=== PATIENT | female | born 1955 | race Caucasian/White ===

== ENCOUNTER 2024-05-28 15:45 | Inpatient (IN) | payer MEDICARE, OTHER, SELFPAY ==
[2024-05-28] VITALS (9 sets, daily range): BP systolic 103–123; BP diastolic 63–81
[2024-05-28 11:56] LABS: Glucose - Point of Care 89 mg/dl (70-99)
[2024-05-28 12:53] LABS: % Basophils 0.4 % (0-2); % Eosinophils 0.3 % (0-6); % Immature Granulocytes 0.1 % (0-0.5); % Lymphocytes 28.6 % (20.5-51.1); % Monocytes 6.1 % (1.7-9.3); % Neutrophils 64.5 % (42.2-75.2); Absolute Lymphocytes 2.8 10^3/uL (1.2-3.4); Absolute Monocytes 0.6 10^3/uL (0.1-0.6); Absolute Neutrophils 6.2 10^3/uL (1.4-6.5); Hematocrit 48.2 % (37.0-47.0); Hemoglobin 15.2 g/dL (12.0-16.0); Mean Corp Hgb Conc. 31.5 g/dL (33.0-37.0); Mean Corpuscular Hgb 30.5 pg (27.0-31.0); Mean Corpuscular Volume 96.8 fL (81.0-99.0); Mean Platelet Volume 11.2 fL (7.4-10.4); Nucleated Red Blood Cells % 0 %; Platelet Count 216 10^3/uL (130-400); Red Blood Cell Count 4.98 10^6/uL (4.20-5.40); Red Cell Dist. Width 13.4 % (11.5-14.5); White Blood Cell Count 9.6 10^3/uL (4.8-10.8)
[2024-05-28 13:05] LABS: ALT (SGPT) 52 U/L (0-35); AST (SGOT) 55 U/L (14-36); Albumin 4.3 g/dl (3.5-5.0); Alkaline Phosphatase 66 U/L (38-126); Blood Urea Nitrogen 35 mg/dl (7-17); Calcium 9.2 mg/dl (8.4-10.2); Carbon Dioxide 29 mmol/L (22-30); Chloride 111 mmol/L (98-107); Glucose 78 mg/dl (70-99); Potassium 4.4 mmol/L (3.5-5.1); Sodium 154 mmol/L (135-145); Total Bilirubin 0.9 mg/dl (0.2-1.3); Total Protein 7.7 g/dl (6.3-8.2); eGFR > 60.00
[2024-05-28 13:11] LABS: Urine Albumin Trace (Neg - Trace); Urine Bilirubin Negative (Negative); Urine Character Clear (Clear); Urine Color Yellow; Urine Glucose Negative (Negative); Urine Ketone Negative (Negative); Urine Leukocyte Negative (Negative); Urine Nitrite Negative (Negative); Urine Occult Blood Negative (Negative); Urine Specific Gravity 1.025 (<1.030); Urine Urobilinogen Negative (Neg - 1+)
--- NOTE | 2024-05-28 14:17 | ED.GENMED ---
History of Present Illness
General
Chief Complaint: Change in Mental Status
Source: records, ambulance crew and long-term
Exam Limitations: dementia
Time Seen by Provider: 05/28/24 13:15
Nursing documentation reviewed up to this point in time: agreed with
History of Present Illness
History of Present Illness:
68-year-old female with a past medical history of hypertension, hyperlipidemia, severe dementia who presents to the emergency department from [facility] for evaluation of lethargy/change in mentation. Patient is nonverbal and
bedbound at baseline. She is unable to participate in history. I spoke to the long-term staff to obtain collateral history: Apparently patient is nonverbal and bedbound but is typically active provide some nonverbal physical feedback when asked
questions. Today they said that she was not acting herself was essentially not responding well to even painful stimuli and so she was sent to the ER for evaluation. They have not noted any recent fever, cough, diarrhea, vomiting or any other
issues. Apparently they did test her for COVID that was negative. No recent medication adjustments.
Review of Systems
Review of Systems
Unable to obtain full review of systems at this time due to: dementia
All Other Systems: Not applicable
Phy Exam
Physical Exam
Physical Exam:
General: Laying in bed eyes open but not tracking with her eyes, not following commands or attempting to respond to questioning; appears cachectic and chronically ill
Head: Normocephalic, atraumatic
Eyes: Conjunctiva normal, pupils 4 mm and reactive to light bilaterally
Throat: Airway intact, somewhat dry mucous membrane
Neck: Trachea midline
Lungs: Clear to auscultation bilaterally, no wheezing, rales, rhonchi
Heart: Regular rate and rhythm, no murmurs, gallops, or rubs
Abd: Soft, non distended, no masses
Neuro: Nonverbal
Extremities: No edema in extremities, warm and well-perfused
Scores
Heart Failure Risk
Heart Failure Risk Score: Not Applicable
Heart Score for Chest Pain Patients
STEMI patient?: Not applicable
Withdrawal Assessment of Alcohol
Withdrawal Assessment Completed?: Not applicable
Course
Orders/Labs/Results
Orders:
Orders
05/28/24 Lunch
NPO
Allow oral meds: Yes
Allow clear liquids: Sips of Clears
05/28/24 12:28
CMP [Comprehensive Metabolic Panel] Urgent
Complete Blood Count/With Diff Urgent
TSH Reflex To Free T4 Urgent
Comment: TSH REFLEX ADDED ON BY FLOOR 2:50PM 05-28-24
Urinalysis Reflex To Culture Urgent
Date Specimen was Collected: 05/28/24
Time Specimen was Collected: 12:25
05/28/24 13:30
CR Chest Portable - 1 View Urgent
Comment:
Reason For Exam: confused
Reason Study Needs to be Portable: Unable to Transport
05/28/24 14:31
CT Head W/o Iv Contrast Urgent
Comment:
Reason For Exam: change in MS/lethergy
05/28/24 14:37
Lactated Ringers [Lr] 1,000 ml IV BOLUS
05/28/24 14:51
Add On- LAB Urgent
Tests Added?: TSH with reflex to Free T4
05/28/24 15:00
Dextrose 5%/Water 1000 ml [D5w] 1,000 ml IV 75 mls/hr
Dextrose 5%/Water 1000 ml [D5w] 1,000 ml IV 75 mls/hr
05/28/24 15:11
Admit/Transfer Patient As Directed
Co-Sign Provider:
Level of Care: Inpatient admission
Assign to:: Telemetry
Physician / Group: charo
Diagnosis: dehydration
Reason for Telemetry: Arrhythmia
Date to Stop Telemetry: 05/31/24
Time to Stop Telemetry: 11:00
Reason for Hospitalization: dehydration
Expected length of stay greater than two midnights?: Yes
ELOS- Estimated Length of Stay in days: 3
I certify the patient meets the requirements for IP care: Yes
PRN Pain Medication Management As Directed
May give lesser potent ordered pain med per pt: Yes
preference::
Protocol:: Medication orders for pain may be administered in a
manner that supports deferring to patient preference
when the pt is:
- Requesting an ordered lesser potent pain medication.
Least to most potent pain medications are defined
as: acetaminophen < NSAID < tramadol < opioids
(morphine, oxycodone, hydromorphone).
- Requesting a lesser dose of the same medication IF
ORDERED.
- Requesting a less intrusive route of administration
if both routes are prescribed by the provider (PO <
IV).
05/28/24 15:13
Code Status As Directed
Resuscitation Status: Full Code
05/28/24 15:15
COVID-19 Antigen Urgent
Source: Nasal Swab
Influenza A+B Rapid Molecular Urgent
RUTHANN Source: Nasal Swab
Specimen Description:
05/28/24 15:32
PRN Pain Medication Management As Directed
May give lesser potent ordered pain med per pt: Yes
preference::
Protocol:: Medication orders for pain may be administered in a
manner that supports deferring to patient preference
when the pt is:
- Requesting an ordered lesser potent pain medication.
Least to most potent pain medications are defined
as: acetaminophen < NSAID < tramadol < opioids
(morphine, oxycodone, hydromorphone).
- Requesting a lesser dose of the same medication IF
ORDERED.
- Requesting a less intrusive route of administration
if both routes are prescribed by the provider (PO <
IV).
05/28/24 16:40
Bisacodyl [Dulcolax] 10 mg RECTAL [id number] PRN
Docusate W/Senna [Senokot-S] 1 tablet PO BIDPRN PRN
Polyethylene Glycol Powder [Miralax] 17 grams PO DAILYPRN PRN
05/28/24 16:40
Activity As Directed
Activity Level: As Tolerated
Vital Signs As Directed
Frequency: Per unit guidelines
Speech Therapy Eval & Treat Routine
DX Deep Vein Thrombosis Video Routine
05/28/24 18:00
TSH Reflex To Free T4 Urgent
Enoxaparin Sodium [Lovenox] 40 mg SC QPM
05/28/24 19:27
BMP [Basic Metabolic Panel] Stat
05/29/24 06:00
Basic Metabolic Panel IN AM
05/30/24 06:00
Basic Metabolic Panel IN AM
05/31/24 06:00
Basic Metabolic Panel IN AM
05/31/24 11:00
DC Protocol for Telemetry ONCE
06/01/24 06:00
Basic Metabolic Panel IN AM
Abnormal Lab Results
05/28/24
12:28
Hct 48.2 H %
(37.0-47.0)
MCHC 31.5 L g/dL
(33.0-37.0)
MPV 11.2 H fL
(7.4-10.4)
Sodium 154 H mmol/L
(135-145)
Chloride 111 H mmol/L
(98-107)
BUN 35 H mg/dl
(7-17)
AST 55 H U/L
(14-36)
ALT 52 H U/L
(0-35)
05/28/24 12:28
05/28/24 12:28
Vital Signs
Initial and Last Documented VS:
Initial Vital Signs
BP
103/72
05/28/24 11:54
Last Documented Vital Signs
Temp Pulse Resp BP Pulse Ox
36.3 C 72 18 114/63 93
05/28/24 19:32 05/28/24 19:32 05/28/24 19:32 05/28/24 19:32 05/28/24 19:32
MDM/Problems Addressed
Differential Diagnosis Includes:
Differential diagnosis for lethargy is wide and includes but not limited to: Dehydration/electrolyte derangement/renal failure, infection including UTI or pneumonia or viral syndrome, hypoglycemia/poor p.o. intake, brain bleed or stroke,
polypharmacy, worsening dementia
MDM/Problems Addressed:
68-year-old female presents to the emergency room for evaluation of increased lethargy/change in mental status that staff says they noted over the past 24 hours. Difficult assessment here as she is baseline nonverbal but apparently she normally
provide some physical feedback/interaction despite being nonverbal and has been very lethargic/minimally responsive today. Vitals and exam as above. She had borderline fever here at 37.8 �C. Will plan to place an IV check labs including a CBC and
a CMP. Will check urinalysis and chest x-ray. Will check CT head. Swab for COVID and flu. Monitor closely reassess after the above.
Initial labs reviewed: CBC unremarkable, CMP shows moderate hyponatremia with a sodium of 154. Creatinine 0.6 his baseline but BUN doubled to 35. Suggests dehydration. Will bolus with 1000 cc of lactated Ringer's. Her urinalysis is negative for
infection, chest x-ray showed no pneumonia. CT head pending. Plan to admit for increased lethargy suspect related to dehydration.
CT head reviewed by me no acute pathology. Case discussed with hospitalist for admission.
Chronic conditions affecting care:
Dementia
*Critical Care Note
Total Time (30-74mins, 75-104mins- exclusive of procedures): Not Applicable
Patient Management
Social determinants of health affecting care: Living situation
Discussion with other providers: Hospitalist (Discussed with hospitalist)
Escalation/DeEscalation of care consider admission/obs:
Admission indicated
ED Attending Note
-
Portions of this chart may have been created with voice recognition software.� Occasional wrong word or��sound alike� substitutions may have occurred due to the inherent limitations of voice recognition software.
Discharge Plan
Departure
Patient Disposition: Admit
Date of Disposition: 05/28/24
Time of Disposition: 14:57
Admit to doctor: Wendy
Presentation/result/management discussed w/ accepting MD/DO: Hospitalist
Discharge Problem:
Acute dehydration, Acute hypernatremia
Interventions
Interventions:
*Risk Screen - Suicide Last Done: 05/28/24 12:04
*General Assessment Last Done: 05/28/24 12:04
*Neglect/Abuse Screening Last Done: 05/28/24 12:04
ED- Fall Risk Assessment Last Done: 05/28/24 12:22
*ED COVID-19 Vaccine History Last Done: 05/28/24 12:04
*Nursing Disposition Last Done: 05/28/24 16:35
ED- Pulmonary Assessment Last Done: 05/28/24 12:22
ED- Neurological Assessment Last Done: 05/28/24 12:22
ED- Cardiac Assessment Last Done: 05/28/24 12:22
ED Swallowing Screen Last Done: 05/28/24 12:22
Discharge Date and Time
Discharge Date/Time: 05/28/24 16:36
[2024-05-28] MEDS: LR 1000 IV (14:58)
[2024-05-28 15:00] LABS: Glucose - Point of Care 84 mg/dl (70-99)
--- NOTE | 2024-05-28 15:06 | HPS.HSE ---
Addendum entered and electronically signed by Vladimir Elena MD 05/28/24 15:46:
I saw and examined the patient.
The CRYPTOLOGIC TECHNICIAN OPERATOR/ANALYST's note was reviewed and I agree with the note.
Comment:
68-year-old female with past medical history of severe dementia, hypertension, hyperlipidemia hypothyroidism who is presenting from [facility] with lethargy/change in mental status. Patient is nonverbal and bedbound at baseline. Patient in the
ER was found to have a sodium of 154. Patient was checked for COVID and was found to be negative. CT head without acute no pulm artery. Patient received IV fluid and was admitted to hospitalist.
General: cachetic, appears chronically ill. eyes open but not following commands
HEENT: NormoCephalic, Moist mucous membranes and Atraumatic
Respiratory: Clear
Cardiac: S1/S2 and Regular Rhythm; No Murmur or Rub
GI: Soft, Non Tender, Non Distended and Normal Bowel Sounds; No Organomegaly
Rectal: Deferred by Provider
Musculoskeletal: No Clubbing, No Cyanosis and No Edema
Skin: No Rash
Neuro: Eyes open. Calm. Not following any commands.
Psych: Calm
# Toxic metabolic encephalopathy secondary to hypernatremia versus worsening of dementia
# Severe dehydration
-Patient received bolus and D 5w in ER
-UA, chest x-ray and CT head negative
-continue hypotonic IV fluid
-BMP at 1800
# Chronic LFT elevation
AST 55, ALT 52
-Continue to trend LFTs
Essential Hypertension--Hold losartan
Hyperlipidemia--Hold atorvastatin
Hypothyroidism--Resume levothyroxine until able to take PO
Anxiety/Depression--Hold meds until mentation improves
Chronic Constipation--Monitor bowel movements
Underweight suspected chronic protein caloric malnutrition moderate versus severe
DVT proph: Lovenox
Code Status: Full Code
Updated son over the phone in detail.
I spent a total of 78 minutes with the patient or on the floor. More than 50% of this time involved counseling and coordination of care.
Original Note:
Family Physician
-
Family Physician: Stefano Mackay
Chief Complaint
-
lethargy
History of Present Illness
68-year-old female with a past medical history of hypertension, hyperlipidemia, severe dementia who presents to the emergency department from [facility] for evaluation of lethargy/change in mentation. Patient is nonverbal and
bedbound at baseline. he is unable to provide any history. history obtained from ER physician and note. patient was not acting her self and not responding to painful stimuli. They have not noted any recent fever, cough, diarrhea, vomiting
Apparently they did test her for COVID that was negative. No recent medication adjustments.
Upon arrival noted hypernatremia. received LR and D5W in ER. admitting for further management.
Medical History
Past Medical History
Past Medical History: Reports Other
Additional Past Medical History:
Essential Hypertension
Hyperlipidemia
Hypothyroidism
Anxiety/Depression
Overactive Bladder
Chronic Constipation
Past Surgical History: Reports None
Social History
Unable to obtain full social history at this time due to: Acuity
Family History
Family History: Not pertinent
Allergies / Home Medications
Allergies reflects when Allergies were last updated in [employer].
Home Medications with original date entered in [employer]
Allergy/Medication List:
Allergies
Allergy/AdvReac Type Severity Reaction Status Date / Time
olanzapine [From Zyprexa] Allergy Unknown Verified 05/28/24 12:07
sertraline [From Zoloft] Allergy Unknown Verified 05/28/24 12:07
Home Medications
acetaminophen 325 mg tablet 650 mg PO Q4HPRN PRN mild pain/fever>100 02/10/23
atorvastatin 40 mg tablet 40 mg PO DAILY High Cholesterol 02/10/23
bupropion HCl 150 mg tablet,12 hr sustained-release 150 mg PO DAILY Depression 02/10/23
clonazepam 0.5 mg tablet 0.5 mg PO HS Mental Health/Anxiety 02/10/23
docusate sodium 100 mg capsule (Colace) 100 mg PO BID Constipation 02/10/23
levothyroxine 112 mcg tablet 112 mcg PO DAILY Thyroid 02/10/23
losartan 25 mg tablet 25 mg PO DAILY Blood Pressure 02/10/23
paroxetine HCl 10 mg tablet 30 mg PO HS Depression 02/10/23
polyethylene glycol 3350 17 gram oral powder packet (Miralax) 17 g PO DAILY Constipation 02/10/23
sennosides 8.6 mg tablet (senna) 17.2 mg PO BID Constipation 02/10/23
famotidine 20 mg tablet (Pepcid) 20 mg PO DAILY 05/28/24
mirtazapine 7.5 mg tablet 7.5 mg PO DAILY 05/28/24
sodium chloride 0.65 % nasal spray aerosol 2 spray intranasal Q2HPRN PRN congestion 05/28/24
Review of Systems
-
Unable to obtain full review of systems at this time due to: Acuity
Physical Exam
Vital Signs
Vital Signs
Temp Pulse Resp BP Pulse Ox
100.0 F 86 14 109/73 96
05/28/24 12:04 05/28/24 13:15 05/28/24 13:15 05/28/24 13:00 05/28/24 13:15
Physical Exam
General: Well Developed, Well Nourished and No Apparent Distress
HEENT: NormoCephalic, Moist mucous membranes and Atraumatic
Respiratory: Clear
Cardiac: S1/S2 and Regular Rhythm; No Murmur or Rub
GI: Soft, Non Tender, Non Distended and Normal Bowel Sounds; No Organomegaly
Rectal: Deferred by Provider
Musculoskeletal: No Clubbing, No Cyanosis and No Edema
Skin: No Rash
Neuro: Nonfocal/grossly intact
Psych: Calm
Laboratory Results
-
05/28/24 12:
05/28/24 12:
Laboratory Results
Total Bilirubin 0.9 mg/dl (0.2-1.3) 05/28/24 12:
AST 55 U/L (14-36) H 05/28/24 12:28
ALT 52 U/L (0-35) H 05/28/24 12:
Alkaline Phosphatase 66 U/L (38-126) 05/28/24 12:
Data Reviewed
-
Diagnostic Radiology: Report Reviewed by me
CT Scan: Report Reviewed by me
Lab Data: Labs Reviewed by me
Impression/Plan
-
# Lethargy suspect secondary to dehydration
# Hyponatremia
-Patient received bolus and D 5w in ER
-UA, chest x-ray and CT head negative
-continue D%W
-BMP at 1800
# Chronic LFT elevation
AST 55, ALT 52
-Continue to trend LFTs
Essential Hypertension--Hold losartan
Hyperlipidemia--Hold atorvastatin
Hypothyroidism--Resume levothyroxine until able to take PO
Anxiety/Depression--Hold meds until mentation improves
Chronic Constipation--Monitor bowel movements
DVT proph: Lovenox
Code Status: Full Code
speech consult
[2024-05-28 15:39] LABS: COVID-19 Antigen Negative (Negative)
[2024-05-28 16:29] LABS: TSH Reflex To Free T4 3.43 uIU/ml (0.47-4.68)
[2024-05-28] MEDS: D5W 1000 IV (16:31)
[2024-05-28] MEDS: LOVENOX 40 MG SC (17:03)
[2024-05-28 20:57] LABS: Blood Urea Nitrogen 31 mg/dl (7-17); Calcium 8.9 mg/dl (8.4-10.2); Carbon Dioxide 30 mmol/L (22-30); Chloride 111 mmol/L (98-107); Estimated Creatinine Clearance 58 ml/min; Glucose 99 mg/dl (70-99); Sodium 148 mmol/L (135-145); eGFR > 60.00
[2024-05-28 21:24] LABS: TSH Reflex To Free T4 3.07 uIU/ml (0.47-4.68)
--- NOTE | 2024-05-29 02:05 | PTCARENOTE ---
Received patient in bed upon change of shift. Non verbal and droswey as reported. Patient repositioned in bed. No signs of distress noted. Call rodriguez within reach.
[2024-05-29 04:03] VITALS: BP 109/62
[2024-05-29] MEDS: D5W 1000 IV (05:55)
[2024-05-29 06:00] VITALS: BMI 16.5
[2024-05-29 06:23] VITALS: BP 113/70
[2024-05-29 08:51] LABS: Blood Urea Nitrogen 28 mg/dl (7-17); Calcium 8.7 mg/dl (8.4-10.2); Carbon Dioxide 29 mmol/L (22-30); Chloride 108 mmol/L (98-107); Estimated Creatinine Clearance 62 ml/min; Glucose 95 mg/dl (70-99); Potassium 3.7 mmol/L (3.5-5.1); Sodium 145 mmol/L (135-145); eGFR > 60.00
[2024-05-29 10:19] VITALS: BMI 16.5
--- NOTE | 2024-05-29 11:01 | PTOTSP ---
ST Acute Care Evaluation
Pt currently presents with clinical signs of mild to moderate oropharyngeal dysphagia characterized by reduced and impaired oral acceptance with reduced oral cavity opening and anterior spillage, prolonged oral manipulation and propulsion
posteriorly, as well as coughing with sequential sips of thin liquids. Pt is at an increased risk for aspiration given her dependency on others for feeding, significant cognitive deficits, and reduced attention to task.
Recommendations:
- Initiate a PO diet of PUREED SOLIDS with REGULAR THIN LIQUIDS (single sips only), and meds crushed in puree.
- Aspiration & GERD precautions precautions: 1:1 assist for all PO intake; HOB fully upright for all PO intake and for 60 minutes after PO intake; small bites; single sips only; alternate bites/sips; feed slowly; check for oral clearance.
- WILLOW ANALYST to f/u re: diet tolerance, to trial diet upgrades, and to determine if pt would benefit from an instrumental swallow study.
[2024-05-29 11:16] VITALS: BP 110/68
--- NOTE | 2024-05-29 11:51 | W.PN.HOSP.TC ---
Addendum entered and electronically signed by Vladimir Elena MD 05/29/24 13:17:
Updated son over the phone in details
Original Note:
Today's Communication/Plan
-
restart home meds
hold statin
diet restarted
DC IVF
TREND CMP
Hold losartan-bp controlled
Assessment / Plan
Assessment / Plan
General: cachetic, appears chronically ill. eyes open but not following commands
HEENT: NormoCephalic, Moist mucous membranes and Atraumatic
Respiratory: Clear
Cardiac: S1/S2 and Regular Rhythm; No Murmur or Rub
GI: Soft, Non Tender, Non Distended and Normal Bowel Sounds; No Organomegaly
Rectal: Deferred by Provider
Musculoskeletal: No Clubbing, No Cyanosis and No Edema
Skin: No Rash
Neuro: Eyes open. Calm. Not following any commands.
Psych: Calm
# Toxic metabolic encephalopathy secondary to acute on chronic hypernatremia versus worsening of dementia
# Severe dehydration
-Patient received bolus and D 5w in ER
-UA, chest x-ray and CT head negative
-stop further IVF. Na downtrended and improved to 145.
- Trend bmp
-seen by speech and started on puree diet with thin liquids. Meds crushed in puree.
# Chronic LFT elevation
AST 55, ALT 52
-Continue to trend LFTs
Essential Hypertension--Hold losartan as BP 110/68 OFF MEDS.
Hyperlipidemia--cont atorvastatin
Hypothyroidism--Resume levothyroxine
Anxiety/Depression--Restart home regimen
Chronic Constipation--Monitor bowel movements-restarted miralax/colace/senna
Underweight suspected chronic protein caloric malnutrition moderate versus severe
DVT proph: Lovenox
Code Status: Full Code
Updated son over the phone in detail on 05/28/24
Called son on 05/29/24 no response. left Voicemail for call back.
Anticipated Discharge: Within 24 hours
Subjective/Interval History
-
Date of Service: May 29, 2024
Awake but does not follow any commands
Objective Data
-
Labs:
Laboratory Results
05/29/24
07:49
Sodium 145
Potassium 3.7
Chloride 108 H
Carbon Dioxide 29
BUN 28 H
Creatinine 0.6
Glucose 95
Calcium 8.7
Vital Signs:
Vital Signs
Temp Pulse Resp BP Pulse Ox
97.8 F 64 20 110/68 97
05/29/24 11:16 05/29/24 11:16 05/29/24 11:16 05/29/24 11:16 05/29/24 11:16
Data Reviewed
-
Total Time Spent with Patient (in minutes): 55
--- NOTE | 2024-05-29 12:24 | CM ---
Pt currently w/ dementia and is nonverbal. Pt is from [facility] term [facility].
Pt is currently bedbound. Per Samantha/Lisa Conley, pt is total care and does not use any DME
No SNF/VN/PT hx
PCP: Dr. Stefano Mackay
Pharmacy: [facility]
Per hospitalist note, anticipated d/c within 24 hours
Pt will need ambulance transport at d/c
[facility]
Report: [phone]

Plan: Return to LTC facility via ambulance
[2024-05-29 15:08] VITALS: BP 102/61
[2024-05-29] MEDS: LOVENOX 40 MG SC (17:42)
[2024-05-29] MEDS: SYNTHROID PO (18:46)
[2024-05-29 21:06] VITALS: BP 92/61
[2024-05-29] MEDS: COLACE PO (21:16)
[2024-05-29] MEDS: PAXIL 30 MG PO (21:16)
[2024-05-29] MEDS: SENOKOT 17.2 MG PO (21:16)
[2024-05-29] MEDS: KLONOPIN 0.5 MG PO (21:17)
[2024-05-29 23:18] VITALS: BP 104/69
[2024-05-30 03:43] VITALS: BP 110/61
[2024-05-30] MEDS: SYNTHROID 112 MCG PO (06:36)
[2024-05-30] MEDS: DESENEX/MITRAZOL/ZEASORB 1 APPLIC TOPICAL (08:21)
[2024-05-30] MEDS: MIRALAX 17 GRAMS PO (08:22)
[2024-05-30] MEDS: SENOKOT 17.2 MG PO (08:22)
[2024-05-30] MEDS: COLACE 100 MG PO (08:22)
[2024-05-30] MEDS: PEPCID 20 MG PO (08:22)
[2024-05-30] MEDS: WELLBUTRIN SR (12 hour sustained release) 150 MG PO (08:22)
[2024-05-30] MEDS: REMERON 7.5 MG PO (08:22)
[2024-05-30 09:00] VITALS: BP 102/62
[2024-05-30 09:51] LABS: ALT (SGPT) 58 U/L (0-35); AST (SGOT) 58 U/L (14-36); Albumin 3.5 g/dl (3.5-5.0); Alkaline Phosphatase 89 U/L (38-126); Blood Urea Nitrogen 25 mg/dl (7-17); Calcium 8.7 mg/dl (8.4-10.2); Carbon Dioxide 27 mmol/L (22-30); Chloride 106 mmol/L (98-107); Estimated Creatinine Clearance 62 ml/min; Glucose 84 mg/dl (70-99); Sodium 143 mmol/L (135-145); Total Bilirubin 0.8 mg/dl (0.2-1.3); Total Protein 6.2 g/dl (6.3-8.2); eGFR > 60.00
--- NOTE | 2024-05-30 10:29 | WOUNDNOTE ---
BILATERAL LOWER EXTREMITY
--- NOTE | 2024-05-30 10:36 | WOUNDNOTE ---
WON RN note: Patient admitted with Acute dehydration,hypernatremia.
See H&P for complete history. From [facility].
PMH: Dementia, ambulatory dysfunction, HTN, incontinence, anxiety depression.
Wound Location and type/assessment: Patient admitted with: Multiple scattered PI's on sacrum/ buttocks. Patient is severely malnourished, nurse reports she took apple sauce with meds this morning. Middle back with small stage 2 PI. L
sacrum/buttocks with DTI and surrounding redness. Sacrum with Stage 3 vs DTI PI. MASD under breast skin folds, fungal powder on order. R ischium with scattered pink davis, suspect MASD. Patient incontinent of large soft stool upon turning, skin care
given. R hip is blanchable red, silicone foam maintained. Legs with scattered tiny scabs, skin very dry. Heels are boggy, blanchable red and very dry. Elbows intact.
Appetite: Poor, needs assist with eating.
Pressure redistribution devices in place: On Air overlay and air chair cushion in use. Palm check done with adequate inflation, patient easy to turn. Pillows placed under calves and foam adhesives to heels to protect.
Plan: Adaptic and silicone foam applied to sacral ulcers, barrier cream to R ischium and naseem rectal area. R hip silicone foam dressing maintained. Changed foam on back and repositioned patient onto L semi side lying position. Will order mineral oil
to use on legs and feet daily. Despite preventative measures suspect patient will develop or evolve current pressure injuries. Will confirm orders with hospitalist and updated nurse Nicole.
Updated care plan and will follow as needed.
Note to case management of equipment requested for discharge:air overlay or air mattress
Recommend follow up at wound care center upon discharge.
[2024-05-30 11:15] VITALS: BP 109/55
--- NOTE | 2024-05-30 11:51 | W.PN.HOSP.TC ---
Addendum entered and electronically signed by Vladimir Elena MD 05/31/24 14:41:
Moderate protein caloric malnutrition of chronic illness
Left sacrum/buttocks deep tissue injury-poa
Middle back small stage 2 PI-poa
Sacrum with stage III deep tissue pressure injury-poa
Addendum entered and electronically signed by Vladimir Elena MD 05/30/24 13:23:
Was able to get hold of patient's son. Explained the hospital course so far. Son agreed for discharge back to [facility] today.
Original Note:
Today's Communication/Plan
-
assistance with feeding
back to SNF
Assessment / Plan
Assessment / Plan
General: cachetic, appears chronically ill. eyes open but not following commands
HEENT: NormoCephalic, Moist mucous membranes and Atraumatic
Respiratory: Clear
Cardiac: S1/S2 and Regular Rhythm; No Murmur or Rub
GI: Soft, Non Tender, Non Distended and Normal Bowel Sounds; No Organomegaly
Rectal: Deferred by Provider
Musculoskeletal: No Clubbing, No Cyanosis and No Edema
Skin: No Rash
Neuro: Eyes open. Calm. Not following any commands.
Psych: Calm
# Toxic metabolic encephalopathy secondary to acute on chronic hypernatremia versus worsening of dementia
# Severe dehydration
-Patient received bolus and D 5w in ER
-UA, chest x-ray and CT head negative
-stop further IVF. Na downtrended and improved to 143
- Trend bmp. Tsh wnl
-seen by speech and started on puree diet with thin liquids. Meds crushed in puree.
# Chronic LFT elevation
-Continue to trend LFTs
Essential Hypertension--Hold losartan as BP 102/64 OFF MEDS.
Hyperlipidemia--hold statin till improvement in LFTs
Hypothyroidism--Resume levothyroxine
Anxiety/Depression--Restart home regimen
Chronic Constipation--Monitor bowel movements-restarted miralax/colace/senna
Underweight suspected chronic protein caloric malnutrition moderate versus severe
DVT proph: Lovenox
Code Status: Full Code
Updated son over the phone in detail on 05/28/24 and 05/29/24
Called son on 05/30/24 no response. left Voicemail for call back.
Dispo-back to [facility]. CM aware.
More than 30 minutes spent in discharge including
Final examination of the patient
Summarizing hospital stay
Instructions for continuing care to all relevant caregivers
Preparation of discharge records, prescriptions, and referral forms
Total time spent (in minutes): 53
Anticipated Discharge: Today
Subjective/Interval History
-
Date of Service: May 30, 2024
no overnight events
eye open
non verbal
does not follow command
Objective Data
-
Labs:
Laboratory Results
05/30/24
08:07
Sodium 143
Potassium 4.0
Chloride 106
Carbon Dioxide 27
BUN 25 H
Creatinine 0.6
Glucose 84
Calcium 8.7
Total Bilirubin 0.8
AST 58 H
ALT 58 H
Alkaline Phosphatase 89
Vital Signs:
Vital Signs
Temp Pulse Resp BP Pulse Ox
97.5 F 55 12 109/55 94
05/30/24 11:15 05/30/24 11:15 05/30/24 11:15 05/30/24 11:15 05/30/24 11:15
I&O
05/29/24 05/30/24 05/31/24
06:59 06:59 06:59
Intake Total 1080 / 1080
Balance 1080 / 1080
--- NOTE | 2024-05-30 12:01 | W.DCSUMMARY ---
Discharge Summary
Discharge Data
Date of Admission: 05/28/24
Date of Discharge: 05/30/24
-
Pending Results: No
Hospital Course
68-year-old female past medical history of advanced dementia, hypertension, hyperlipidemia, hypothyroidism, anxiety, depression, chronic constipation, caloric malnutrition presented [facility] with altered mental status. Patient was found to
be lethargic. Upon admission patient UA was found to be negative. CT head was negative for acute stroke or bleeding. Chest x-ray was negative for acute infiltrate. Patient was found to be severely dehydrated with sodium of 154. Patient was
started on IV fluid resuscitation. Patient was started on D5 water. Patient sodium slowly down trended. Patient was eval by speech therapy and recommended pur�ed diet with thin liquids. Patient blood pressure was found to be controlled off
medication. Losartan was discontinued. Patient was having bowel movement. Patient was tolerating diet with assistance with feeding. Patient sodium was stable. Vital signs were stable. Patient be discharged back to [facility]. Patient son
was updated throughout hospitalization. Patient son agreed for discharge back to [facility] as vital signs were stable and patient tolerating diet and mentation back to baseline.
Discharge Plan
-
Patient Disposition: Snf/SNF
Discharge Diagnosis/Procedures: Toxic metabolic encephalopathy secondary to acute on chronic hypernatremia versus worsening of dementia
Severe dehydration
Condition: Fair
Diet: Other diet
Additional Diets: PO diet of PUREED SOLIDS with REGULAR THIN LIQUIDS (single sips only), and meds crushed in puree.
Aspiration & GERD precautions precautions: 1:1 assist for all PO intake; HOB fully upright for all PO intake and for 60 minutes after PO intake; small bites; single sips only; alternate bites/sips; feed slowly; check for oral clearance.
Activity: With assistance and As tolerated
Driving Restrictions: No driving
Blood Work: CMP in 7 days via primary doctor.
Activity Restrictions/Additional Instructions:
Wound Care Instructions
Sacrum and L sacrum: clean with saline, Adaptic and silicone foam change daily and prn drainage.
R ischium and naseem rectal area barrier cream after bathing
R hip and back: silicone foam change q 3 days and prn soilage dressing
mineral oil to use on legs and feet daily.
Air overlay or air mattress
Follow up at wound care center call for an appointment.
Referrals:
Stefano Mackay MD [Family Provider] - in less than 1 week
Prescriptions:
Continued
bupropion HCl 150 mg Tablet Sustained-Release 12 Hr
150 mg PO DAILY
sennosides [senna] 8.6 mg Tablet
17.2 mg PO BID
acetaminophen 325 mg Tablet
650 mg PO Q4HPRN PRN (Reason: mild pain/fever>100)
paroxetine HCl 10 mg Tablet
30 mg PO HS
polyethylene glycol 3350 [Miralax] 17 gram Powder In Packet
17 g PO DAILY
clonazepam 0.5 mg Tablet
0.5 mg PO HS
docusate sodium [Colace] 100 mg Capsule
100 mg PO BID
levothyroxine 112 mcg Tablet
112 mcg PO DAILY
famotidine [Pepcid] 20 mg Tablet
20 mg PO DAILY
sodium chloride 0.65 % Aerosol,[place]
2 spray INTRANASAL Q2HPRN PRN (Reason: congestion)
mirtazapine 7.5 mg Tablet
7.5 mg PO DAILY
Held
atorvastatin 40 mg Tablet
40 mg PO DAILY
Hold Instructions: Resume on 06/06/24. hold till improvement in LFTs
Discontinued
losartan 25 mg Tablet
25 mg PO DAILY
Discharge Orders:
Discharge Patient (As Directed); Ordered 05/30/24
Ordered By: Vladimir Elena
Discharge Date and Time
Print Language: Sudanese
--- NOTE | 2024-05-30 12:33 | CM ---
Per hospitalist, pt is medically stable to d/c today back to [facility]
Pt will need ambulance transport as she has dementia and is bedbound. Transport arranged for 4 pm.
Samantha/[facility] updated w/ d/c and time
Attempted phone call to pt's son to discuss d/c and to review IMM as pt has dementia, there was no answer, left vm
Hospitalist attempted phone call to son as well, no answer.
[facility]
Report: [phone]

Plan: Return to [facility]
[2024-05-30 15:17] VITALS: BP 135/86
--- NOTE | 2024-05-31 09:22 | PN.CDI ---
CDI
- -
CDI:
Physician Documentation Request
Admit Date: 05/28/24 15:45
Dear Doctor Humphrey,
05/30 WOCN note states ' Middle back with small stage 2 PI. L sacrum/buttocks with DTI and surrounding redness. Sacrum with Stage 3 vs DTI PI'
Physician documentation of the type and location of wounds is required for compliant documentation. Based on the above clinical findings and your assessment, please provide the following in your progress note:
1. Location of the ulcer/wound, including laterality.
2. Type (etiology) of ulcer/wound:
- Traumatic wound
- Pressure (decubitus) ulcer
- Other
Use of terms such as suspected, likely, concern for, or probable (associated with a specific diagnosis that is being evaluated, monitored, or treated as if it exists) are acceptable and can be coded in the inpatient setting, when documented at the
time of discharge.
Thank you,
Vianey Lynch RN BSN
CDI Specialist
tiger text
Please use your independent medical judgment in providing your response.
*Source: National Pressure Ulcer Advisory Panel (NPUAP)
--- NOTE | 2024-05-31 09:28 | PN.CDI ---
CDI
- -
CDI:
Physician Documentation Request
Admit Date: 05/28/24 15:45
Dear Doctor Kassy,
05/29 assessment and notes state 'underweight (< 18.5). BMI 16.5. Assessment- subcutaneous loss over orbital severity moderate. Assessment - Muscle loss over Temporal severity- moderate. Patient meets AND and ASPEN criteria for moderate protein
calorie malnutrition of chronic disease due to moderate muscle wasting in her temporal area and moderate fat wasting in her orbital area. '
Hospitalist progress note states 'Underweight suspected chronic protein caloric malnutrition moderate versus severe'
Based on the above information and your assessment, which of the following most accurately represents the patient's nutritional status?
Moderate Malnutrition
Severe Malnutrition is/was present and is a clinical diagnosis (please provide additional support in the medical record)
Other (please specify)
[place] Criteria ([facility] Hospitalist 2017)
2 or more criteria must be present for either
non severe or severe malnutrition
Note that the criteria differs related to the
presence of an acute or chronic illness
Acute Illness Chronic Illness
Energy Intake Non Severe: <75% for >7 days Non Severe: <75% for >1 month
Severe: <50% for >5 days Severe: <75% for >1 month
Weight Loss Non Severe: 1-2% over 1 week Non Severe: 5% over 1 month
5% over 1 month 7.5% over 3 months
7.5% over 3 months 10% over 6 months
1 year N/A 20% over 1 year
Severe: >2% over 1 week Severe: >5% over 1 month
>5% over 1 month >7.5% over 3 months
>7.5% over 3 months >10% over 6 months
1 year N/A >20% over 1 year
Body Fat Non Severe: Mild Decrease Non Severe: Mild Loss
Severe: Moderate Decrease Severe: Severe Loss
Muscle Mass Non Severe: Mild Decrease Non Severe: Mild Loss
Severe: Moderate Decrease Severe: Severe Loss
Fluid Accumulation Non Severe: Mild Accumulation Non Severe: Mild Accumulation
Severe: Moderate to severe Severe: Moderate to severe
accumulation accumulation
Reduced [place] Sorter Strength Non Severe: N/A Non Severe: N/A
Severe: Measurably reduced Severe: Measurably reduced
Use of terms such as suspected, likely, concern for, or probable (associated with a specific diagnosis that is being evaluated, monitored, or treated as if it exists) are acceptable and can be coded in the inpatient setting, when documented at the
time of discharge.
Thank you,
Vianey Lynch RN, BSN
CDI Specialist
tiger text
Please use your independent medical judgment in providing your response.
== END 2024-05-30 16:54 | DRG 640 ==
LOC: 4 WEST ACU 15:45
PROVIDERS: Emergency Medicine; Registered Nurse; ADMITTING PHYSICIAN Hospitalist; EMERGENCY PHYSICIAN Emergency Medicine; FAMILY PHYSICIAN Internal Medicine
DX: E87.0 Hyperosmolality and hypernatremia (principal); G92.8 Other toxic encephalopathy; L89.153 Pressure ulcer of sacral region, stage 3; R64 Cachexia; F03.C3 Unspecified dementia, severe, with mood disturbance; F03.C4 Unspecified dementia, severe, with anxiety; E44.0 Moderate protein-calorie malnutrition; Z68.1 Body mass index [BMI] 19.9 or less, adult; I10 Essential (primary) hypertension; E78.5 Hyperlipidemia, unspecified; E03.9 Hypothyroidism, unspecified; F32.A Depression, unspecified; Z11.52 Encounter for screening for COVID-19; L89.102 Pressure ulcer of unspecified part of back, stage 2
CPT/HCPCS: 70450; 71045; 80048; 80053; 81003; 82962; 84443; 85025; 87502; 87811; 92610; 96360; 99285

== ENCOUNTER 2024-06-26 19:26 | Inpatient (IN) | payer MEDICARE, OTHER, SELFPAY ==
[2024-06-26] VITALS (8 sets, daily range): BP systolic 110–177; BP diastolic 71–101; BMI 15.1
--- NOTE | 2024-06-26 14:24 | ED.GENMED ---
History of Present Illness
General
Chief Complaint: Chest Pain
Source: detention
Exam Limitations: clinical condition
Time Seen by Provider: 06/26/24 14:15
History of Present Illness
History of Present Illness:
68-year-old female lives at [facility]. History of dementia. Presented with hypoxia
Past History
Past History
ED Past Medical History: Hypercholesterolemia, Hypothyroidism and Other (Dementia)
Social History
Tobacco: Non-smoker
Living: detention
Employment: Retired
Review of Systems
Review of Systems
Unable to obtain full review of systems at this time due to: dementia
All Other Systems: Not applicable
Phy Exam
Physical Exam
Physical Exam:
GENERAL: Eyes open. Does not follow commands. Chronically ill-appearing. Contracted.
EYE: Orbits normal.
NECK: Supple, no significant adenopathy.
ENT: Pharynx without erythema
CARDIAC: Regular rate and rhythm with mild midsystolic murmur
LUNGS: Mildly hypoxic on room air. Mild coarse rhonchi more at the right base. No respiratory distress
ABDOMEN: Soft, without focal tenderness or distention
NEUROLOGICAL: Withdraws to pain. Poor eye contact. No obvious facial droop or obvious extremity weakness
SKIN: Warm and dry, no rash or lesion, no discoloration, skin intact.
MUSCULOSKELETAL: Contracture right leg flexed at the hip. Right knee flexed. Contracture of the left hand.
PSYCH: Flat affect. No interaction
Scores
Heart Score for Chest Pain Patients
STEMI patient?: Not applicable
Sepsis
Sepsis Screening
Sepsis Assessment: Sepsis Ruled Out
Sepsis Screen
Sepsis Screen: Sepsis Ruled Out
Date: 06/26/24
Time: 20:27
Course
Orders/Labs/Results
Orders:
Orders
06/26/24 14:16
EKG [Electrocardiogram (*1)] Urgent
Reason for Study: Tachycardia
EKG- Treatment ONCE
06/26/24 14:22
Cardiac Monitoring- Treatment ONCE
IV Insert/Care/Rem.- Treatment PRN
IV Insert/Care/Rem.- Treatment PRN
Straight cath- Treatment ONCE
O2 Therapy [RESP] Stat
Titrate/Wean O2 to maintain O2 sat greater than (%): 94
Pulse Ox/cont/shift [RESP] Stat
Quantity: 1
06/26/24 14:23
Electrocardiogram (*1) Stat
Reason for Study: Other
Other Reason for Exam: pneumonia
EKG- Treatment ONCE
06/26/24 14:37
Basic Metabolic Panel Urgent
COVID-19 Antigen Urgent
Source: Nasal Swab
Complete Blood Count/With Diff Urgent
Influenza A+B Rapid Molecular Urgent
RUTHANN Source: Nasal Swab
Specimen Description:
06/26/24 15:16
Blood Culture Q30M
RUTHANN Source: Blood/Venous
Specimen Description:
Blood Culture Q30M
RUTHANN Source: Blood/Venous
Specimen Description:
06/26/24 16:25
CXR Port [CR Chest Portable - 1 View] Urgent
Comment:
Reason For Exam: Fever/hypoxia
Reason Study Needs to be Portable: Patient Unstable
06/26/24 16:50
Influenza A+B Rapid Molecular Urgent
RUTHANN Source: Nasal Swab
Specimen Description:
06/26/24 17:16
Urinalysis Reflex To Culture Urgent
Date Specimen was Collected: 06/26/24
Time Specimen was Collected: 17:15
Urine Microscopic Reflex Cult Urgent
Urine Culture Urgent
RUTHANN Source: U
Specimen Description:
Date Specimen was Collected: 06/26/24
Time Specimen was Collected: 17:15
06/26/24 17:51
CefTRIAXone [Rocephin] 1,000 mg IV NOW STA
06/26/24 18:30
Acetaminophen 1000MG/100Ml [Ofirmev] 1,000 mg in 100 ml IV ONCE
Acetaminophen IV Indication:: Targeted Temp Management
06/26/24 19:05
Admit/Transfer Patient As Directed
Co-Sign Provider:
Level of Care: Inpatient admission
Assign to:: Telemetry
Physician / Group: venancio johnson
Diagnosis: sepsis 2/2 uti,hyperglycemia,chronic noverbal bedbound
Reason for Telemetry: Arrhythmia
Date to Stop Telemetry: 06/29/24
Time to Stop Telemetry: 11:00
Reason for Hospitalization: sepsis 2/2 uti,hyperglycemia,chronic noverbal bedbound
Expected length of stay greater than two midnights?: Yes
ELOS- Estimated Length of Stay in days: 5
I certify the patient meets the requirements for IP care: Yes
Code Status As Directed
Resuscitation Status: Full Code
06/26/24 19:15
PRN Pain Medication Management As Directed
May give lesser potent ordered pain med per pt: Yes
preference::
Protocol:: Medication orders for pain may be administered in a
manner that supports deferring to patient preference
when the pt is:
- Requesting an ordered lesser potent pain medication.
Least to most potent pain medications are defined
as: acetaminophen < NSAID < tramadol < opioids
(morphine, oxycodone, hydromorphone).
- Requesting a lesser dose of the same medication IF
ORDERED.
- Requesting a less intrusive route of administration
if both routes are prescribed by the provider (PO <
IV).
06/29/24 11:00
DC Protocol for Telemetry ONCE
Abnormal Lab Results
06/26/24 06/26/24
14:37 17:16
WBC 12.2 H 10^3/uL
(4.8-10.8)
Abs Immat Gran (auto) 0.1 H 10^3/uL
(0-0.05)
Absolute Neuts (auto) 10.7 H 10^3/uL
(1.4-6.5)
Absolute Lymphs (auto) 1.0 L 10^3/uL
(1.2-3.4)
Neutrophils % 87.9 H %
(42.2-75.2)
Lymphocytes % 8.0 L %
(20.5-51.1)
Carbon Dioxide 20 L mmol/L
(22-30)
BUN 40 H mg/dl
(7-17)
Glucose 227 H mg/dl
(70-99)
Ur Occult Blood Reflex 3+ A
(Negative)
Urine Nitrite (Reflex) Positive A
(Negative)
Leukocyte Esterase Rfl 2+ A
(Negative)
Urine RBC 7-10 A /HPF
(0-2)
Urine WBC (Reflex) >100 A /HPF
(0-5)
Urine Bacteria (Reflex) Moderate A
(Negative)
Urine Albumin (Reflex) 2+ A
(Neg - Trace)
06/26/24 14:37
06/26/24 14:37
Vital Signs
Initial and Last Documented VS:
Initial Vital Signs
Temp Pulse BP Pulse Ox
101.9 F H 110 150/101 91
06/26/24 14:14 06/26/24 14:14 06/26/24 14:14 06/26/24 14:14
Last Documented Vital Signs
Temp Pulse Resp BP Pulse Ox
101 F H 106 24 177/97 96
06/26/24 18:00 06/26/24 18:17 06/26/24 17:30 06/26/24 17:00 06/26/24 17:30
*Pulse Oximetry
Patient hypoxic: yes
*Critical Care Note
Total Time (30-74mins, 75-104mins- exclusive of procedures): Not Applicable
Data Reviewed
Review of Other/Old Records Reveals: Labs, Records, Testing and Discharge Summary
Update Note
Update Note:
Son was contacted and updated.
ED Attending Note
-
Portions of this chart may have been created with voice recognition software.� Occasional wrong word or��sound alike� substitutions may have occurred due to the inherent limitations of voice recognition software.
Discharge Plan
Departure
Patient Disposition: Admit
Date of Disposition: 06/26/24
Time of Disposition: 17:53
Presentation/result/management discussed w/ accepting MD/DO: Hospitalist
Discharge Problem:
Fever/hypoxia, Dehydration, UTI
Interventions
Interventions:
*Risk Screen - Suicide Last Done: 06/26/24 17:34
*General Assessment Last Done: 06/26/24 17:34
*ED COVID-19 Vaccine History Last Done: 06/26/24 17:34
ED- Cardiac Assessment Last Done: 06/26/24 17:37
[2024-06-26 15:06] LABS: % Basophils 0.2 % (0-2); % Immature Granulocytes 0.4 % (0-0.5); % Monocytes 3.5 % (1.7-9.3); % Neutrophils 87.9 % (42.2-75.2); Absolute Immature Granulocytes 0.1 10^3/uL (0-0.05); Absolute Monocytes 0.4 10^3/uL (0.1-0.6); Absolute Neutrophils 10.7 10^3/uL (1.4-6.5); Hematocrit 40.6 % (37.0-47.0); Hemoglobin 13.5 g/dL (12.0-16.0); Mean Corp Hgb Conc. 33.3 g/dL (33.0-37.0); Mean Corpuscular Hgb 30.5 pg (27.0-31.0); Mean Corpuscular Volume 91.9 fL (81.0-99.0); Mean Platelet Volume 9.8 fL (7.4-10.4); Nucleated Red Blood Cells % 0 %; Platelet Count 369 10^3/uL (130-400); Red Blood Cell Count 4.42 10^6/uL (4.20-5.40); Red Cell Dist. Width 13.8 % (11.5-14.5); White Blood Cell Count 12.2 10^3/uL (4.8-10.8)
[2024-06-26 15:16] LABS: COVID-19 Antigen Negative (Negative)
[2024-06-26 15:32] LABS: Blood Urea Nitrogen 40 mg/dl (7-17); Calcium 9.8 mg/dl (8.4-10.2); Carbon Dioxide 20 mmol/L (22-30); Chloride 106 mmol/L (98-107); Glucose 227 mg/dl (70-99); Sodium 141 mmol/L (135-145); eGFR > 60.00
[2024-06-26 17:32] LABS: Urine Albumin 2+ (Neg - Trace); Urine Bilirubin Negative (Negative); Urine Character Very Cloudy (Clear); Urine Color Yellow; Urine Glucose Negative (Negative); Urine Ketone Negative (Negative); Urine Leukocyte 2+ (Negative); Urine Nitrite Positive (Negative); Urine Occult Blood 3+ (Negative); Urine Specific Gravity 1.025 (<1.030); Urine Urobilinogen Negative (Neg - 1+)
[2024-06-26 17:55] LABS: Urine Bacteria Moderate (Negative); Urine White Cell >100 /HPF (0-5)
[2024-06-26] MEDS: ROCEPHIN 1000 MG IV (18:16)
--- NOTE | 2024-06-26 18:31 | HPS.HSE ---
Family Physician
-
Family Physician: Stefano Mackay
Chief Complaint
-
Fever, hypoxia, diaphoresis
History of Present Illness
68-year-old female from [facility] with staff reporting the patient was tachycardic, diaphoretic with chest pain hypoxia 90% on room air, however the patient is nonverbal. She presented in the ER with a temp of 101.9F WBC 12.2 with
left shift, hyperglycemia and pyuria. She is awake will attempt to make eye contact is completely nonverbal cannot follow any commands to squeeze hands shake head yes or no, however chart from [facility] states she is Australian-speaking. I am
unsure whether she understands Greenlandic.
She has history of severe dementia, chronic nonverbal bedbound status with contractures of bilateral arms, left hand and lower legs, cachexia, HTN, hypernatremia secondary to severe dehydration, chronic LFT elevation, HLD, hypothyroidism, anxiety,
depression, chronic constipation.
The patient had a recent admission 05/28 - 05/30/2024 secondary to severe dehydration with hypernatremia NA 154 she had fluid resuscitation with D5 water. Speech recommended pur�ed diet with thin liquids due to speech declining with history of
dementia and her losartan was discontinued.
Medical History
Past Medical History
Past Medical History: Reports Other
Additional Past Medical History:
Severe dementia
Chronic nonverbal/bedbound prior Australian-speaking
Chronic contractures arms, left hand, bilateral legs
Chronic cachexia
Essential Hypertension
Hyperlipidemia
Hypothyroidism
Anxiety/Depression
Overactive Bladder
Chronic Constipation
Past Surgical History: Reports None
Social History
Unable to obtain full social history at this time due to: Acuity
Living: Residential ([facility])
Employment: Disabled
Family History
Family History: Not pertinent
Allergies / Home Medications
Allergies reflects when Allergies were last updated in [employer].
Home Medications with original date entered in [employer]
Allergy/Medication List:
Allergies
Allergy/AdvReac Type Severity Reaction Status Date / Time
olanzapine [From Zyprexa] Allergy Unknown Verified 05/28/24 12:07
sertraline [From Zoloft] Allergy Unknown Verified 05/28/24 12:07
Home Medications
acetaminophen 325 mg tablet 650 mg PO Q4HPRN PRN mild pain/fever>100 02/10/23
atorvastatin 40 mg tablet 40 mg PO DAILY High Cholesterol 02/10/23
bupropion HCl 150 mg tablet,12 hr sustained-release 150 mg PO DAILY Depression 02/10/23
clonazepam 0.5 mg tablet 0.5 mg PO HS Mental Health/Anxiety 02/10/23
docusate sodium 100 mg capsule (Colace) 100 mg PO BID Constipation 02/10/23
levothyroxine 112 mcg tablet 112 mcg PO DAILY Thyroid 02/10/23
paroxetine HCl 10 mg tablet 30 mg PO HS Depression 02/10/23
polyethylene glycol 3350 17 gram oral powder packet (Miralax) 17 g PO DAILY Constipation 02/10/23
sennosides 8.6 mg tablet (senna) 17.2 mg PO BID Constipation 02/10/23
famotidine 20 mg tablet (Pepcid) 20 mg PO DAILY Gastrointestinal Issue 05/28/24
mirtazapine 7.5 mg tablet 7.5 mg PO DAILY Mental Health/Anxiety 05/28/24
eyelid cleanser combination 3 (OcuSoft Lid Scrub Plus topical pads) 1 pad topical BID both eyelids 06/26/24
honey 80 % topical gel (MediHoney (honey)) 1 applic topical DAILY sacral wound 06/26/24
honey 80 % topical gel (MediHoney (honey)) 1 applic topical DAILYPRN PRN soilage 06/26/24
losartan 25 mg tablet 25 mg PO DAILY 06/26/24
Review of Systems
-
History Source: Residential
A 12 point ROS was completed and negative except as noted: Yes
Constitutional: Reports Fever and Fatigue
EENT: Reports Other (Dry oral mucosa)
Respiratory: Denies Trouble Breathing
Cardiac: Denies Diaphoresis
Abdomen/GI: Denies Vomiting or Diarrhea
Musculoskeletal: Reports Other (Contracture bilateral arms, left hand, bilateral legs); Denies Edema
Skin: Denies Rash
Hematologic/Lymphatic: Denies Bleeding or Bruising
Psych: Reports Calm
Physical Exam
Vital Signs
Vital Signs
Temp Pulse Resp BP Pulse Ox
101.9 F H 106 24 177/97 96
06/26/24 14:14 06/26/24 18:17 06/26/24 17:30 06/26/24 17:00 06/26/24 17:30
Physical Exam
General: Other (Cachectic nonverbal female)
HEENT: NormoCephalic, PERRLA, [place] Conjunctivae, No Ptosis and Other (Dry oral mucosa)
Respiratory: Clear; No Wheezes, Rales or Rhonchi
Cardiac: S1/S2 and Tachycardia (Sinus); No Murmur, Rub or Gallop
Breast: Deferred by me
GI: Soft, Non Tender, Non Distended (On palpation does not grimace or pull at my hands) and Normal Bowel Sounds
Rectal: Deferred by Provider
Genito-urinary: Deferred by me
Musculoskeletal: No Clubbing, No Cyanosis, No Edema and Other (Contracture bilateral arms, left hand, bilateral legs)
Neuro: Awake, Alert (Tracks with eyes but is completely nonverbal does not attempt to speak, use any sign language. Cannot follow instructions) and Other (Contracture bilateral arms, left hand, bilateral legs); No Slurred Speech, Facial Droop or
Tremors
Psych: Calm
Laboratory Results
-
06/26/24 14:37
06/26/24 14:37
Impression/Plan
-
Impression/plan:
Admit to telemetry
#Sepsis secondary to pyuria concern for UTI(patient nonverbal unable to report if symptomatic)
Pyuria, 101.9F, WBC 12.2 with left shift
COVID/flu-negative
-Tylenol pr as needed for fever
-IV Rocephin 1 g daily
-IV NSS 80 cc/h
-Follow urine culture, blood cultures x 2
CXR:
1. No radiographic evidence for pneumonia, acute pulmonary edema, or pleural effusion.
2. Mild elevation of the left hemidiaphragm with chronic air distention of the splenic flexure of the colon in the left upper quadrant.
3. Diffuse bone demineralization.
#Hypoxic respiratory insufficiency likely secondary to sepsis poor inspiration
#Hx DYSPHAGIA DX on 05/29/2024
-Had speech swallow eval with recommendation of Pur�ed diet with thin liquids
91% RA, 96% 2 LNC
-CXR negative
-Consult Speech swallow eval prior evaluation early May recommended pur�ed diet with thin liquids
# New hyperglycemia
BS 227, check HgbA1c
#Severe dementia Nonverbal, bedbound(according to patient's chart she is Australian-speaking)
#Chronic bilateral arm contractures/left hand, bilateral legs
#Essential Hypertension
BP 177/97
-continue losartan 25 mg daily with hold parameters as patient had been taken off of this early May due to hypotension
# Severe dehydration/hypernatremia treated inpatient 05/28 - 05/30/2024 due to decreased oral intake
-Follow CMP
# Chronic LFT elevation
-LFTs appear to be baseline for patient compared to early May AST 58, ALT 58, alk phos 89
#Hyperlipidemia
--hold statin till improvement in LFTs
#Hypothyroidism
-continue levothyroxine 112 mcg daily
#Anxiety/Depression on CHRONIC BENZO
-Continue Wellbutrin 150 mg daily
- clonazepam 0.5 mg at bedtime will convert to IV Ativan 0.5 mg hs to avoid any benzo withdrawal but will hold for sedation
-cont mirtazapine 7.5 mg daily
#Chronic Constipation
--Monitor bowel movements-restarted miralax/colace/senna
#Underweight suspected chronic protein caloric malnutrition moderate versus severe
Speech swallow to eval
DVT proph: Lovenox
Code Status: Full Code
[2024-06-26] MEDS: OFIRMEV 100 IV (18:33)
--- NOTE | 2024-06-26 19:37 | W.PN.UPDATE ---
Update Note
Progress Note Update
This is an addendum to the H&P written by Wandy Thornton on 06/26/2024. Patient seen and examined independently with CLINICAL RESEARCH SPEC.
68-year-old French-speaking female past medical history of severe dementia, chronically nonverbal, bedbound at baseline, contractures of bilateral arms, cachectic, hypertension, hyperlipidemia, hypothyroidism, anxiety/depression, chronic
constipation, presenting for tachycardia, diaphoresis, reported chest pain/hypoxemia to 90% with temperature of 101. Patient completely nonverbal and not following commands.
COVID and influenza negative. Chest x-ray unremarkable. Urinalysis suggestive of UTI.
Patient clinically septic secondary to UTI. Labs show leukocytosis. Check cultures. N.p.o., IV fluids, ceftriaxone. Hypoxemia requiring 2 L likely secondary to poor inspiratory effort/restrictive lung disease from being contracted. Cannot take
p.o. medications. Check speech and swallow.
[2024-06-26] MEDS: TORADOL 15 MG IV (20:43)
[2024-06-27] MEDS: ATIVAN 0.5 MG IV ×2 (00:38→22:41)
[2024-06-27] MEDS: PEPCID 20 MG IV ×2 (00:39→22:33)
[2024-06-27] MEDS: NSS (PRESERVATIVE FREE) 8 ML IV ×2 (00:39→22:33)
[2024-06-27] MEDS: NSS (PRESERVATIVE FREE) 0.25 ML IV ×2 (00:39→22:41)
[2024-06-27] MEDS: NSS 1000 IV ×2 (00:41→13:31)
[2024-06-27 03:06] VITALS: BP 113/68
[2024-06-27 06:00] VITALS: BMI 14.8
[2024-06-27 06:41] LABS: Glucose - Point of Care 91 mg/dl (70-99)
[2024-06-27 07:29] LABS: Glucose - Point of Care 93 mg/dl (70-99)
[2024-06-27 07:55] VITALS: BP 123/75
[2024-06-27 08:27] LABS: % Basophils 0.4 % (0-2); % Eosinophils 0.1 % (0-6); % Immature Granulocytes 0.3 % (0-0.5); % Lymphocytes 22.3 % (20.5-51.1); % Monocytes 7.1 % (1.7-9.3); % Neutrophils 69.8 % (42.2-75.2); Absolute Lymphocytes 1.7 10^3/uL (1.2-3.4); Absolute Monocytes 0.5 10^3/uL (0.1-0.6); Absolute Neutrophils 5.3 10^3/uL (1.4-6.5); Hematocrit 35.1 % (37.0-47.0); Hemoglobin 11.8 g/dL (12.0-16.0); Mean Corp Hgb Conc. 33.6 g/dL (33.0-37.0); Mean Corpuscular Volume 92.1 fL (81.0-99.0); Nucleated Red Blood Cells % 0 %; Platelet Count 258 10^3/uL (130-400); Red Blood Cell Count 3.81 10^6/uL (4.20-5.40); Red Cell Dist. Width 13.9 % (11.5-14.5); White Blood Cell Count 7.6 10^3/uL (4.8-10.8)
[2024-06-27 08:54] LABS: Glycohemoglobin (HgbA1c) 5.7 % (4.0-5.6)
[2024-06-27 09:00] LABS: ALT (SGPT) 43 U/L (0-35); AST (SGOT) 66 U/L (14-36); Albumin 3.5 g/dl (3.5-5.0); Alkaline Phosphatase 96 U/L (38-126); Blood Urea Nitrogen 44 mg/dl (7-17); Calcium 9.1 mg/dl (8.4-10.2); Carbon Dioxide 27 mmol/L (22-30); Chloride 108 mmol/L (98-107); Estimated Creatinine Clearance 48 ml/min; Glucose 86 mg/dl (70-99); Potassium 4.2 mmol/L (3.5-5.1); Sodium 143 mmol/L (135-145); Total Bilirubin 0.6 mg/dl (0.2-1.3); Total Protein 6.3 g/dl (6.3-8.2); eGFR > 60.00
[2024-06-27 11:51] VITALS: BP 140/80
[2024-06-27 12:57] LABS: Glucose - Point of Care 88 mg/dl (70-99)
--- NOTE | 2024-06-27 13:33 | W.PN.HOSP.TC ---
Today's Communication/Plan
-
Assessment / Plan
Assessment / Plan
Sepsis likely secondary to acute cystitis as this is the only for focal infectious source I can see
-She is nonverbal
-UA grossly positive
-Follow-up on urine culture
-Continue Rocephin
Without evidence of hypoxia nor respiratory distress
-Will continue to monitor SpO2
Prediabetes, hyperglycemia in the setting of acute infection
-Continue to monitor blood sugars
-Would not initiate oral hypoglycemics at this time
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
-Delirium precautions
-Close the blinds at night, open them during the day
-Turn the TV on during the day turn it off at night
-Keep the lights on during the day turn them off at night
Hypothyroidism
-Continue levothyroxine
Severe protein calorie malnutrition with a BMI of 14.8
-Speech consult for swallow evaluation
-Encourage p.o. intake, ensure
GERD
-Continue PPI
Anxiety/depression
-Continue anxiolytics and antidepressant
Hyperlipidemia
-Continue statin
I tried calling Elijah her son however no answer. Will attempt later on in the day
If afebrile for more than 24 hours we will plan to discharge back to [facility]
Anticipated Discharge: 24 - 48 hours
Subjective/Interval History
-
Date of Service: June 27, 2024
Seen and examined. No new complaints. No acute overnight events.
Objective Data
-
Labs:
Laboratory Results
06/27/24
07:06
WBC 7.6
Hgb 11.8 L
Hct 35.1 L
Plt Count 258 D
Sodium 143
Potassium 4.2
Chloride 108 H
Carbon Dioxide 27
BUN 44 H
Creatinine 0.7
Glucose 86
Calcium 9.1
Total Bilirubin 0.6
AST 66 H
ALT 43 H
Alkaline Phosphatase 96
Vital Signs:
Vital Signs
Temp Pulse Resp BP Pulse Ox
99.3 F 90 18 140/80 96
06/27/24 11:51 06/27/24 11:51 06/27/24 11:51 06/27/24 11:51 06/27/24 11:51
Physical Exam
-
General: Appears Chronically Ill and Cachectic
HEENT: Other (Nonverbal)
Respiratory: Clear to Auscultation
GI: Soft, Nontender, Nondistended and Normal Bowel Sounds
Skin: Warm
[2024-06-27 14:59] VITALS: BP 148/85
[2024-06-27 17:14] LABS: Glucose - Point of Care 83 mg/dl (70-99)
[2024-06-27] MEDS: LOVENOX 30 MG SC (18:12)
[2024-06-27] MEDS: ROCEPHIN 1000 MG IV (18:13)
[2024-06-27] MEDS: STERILE WATER FOR INJECTION 10 ML IV (18:13)
[2024-06-27 19:00] VITALS: BP 124/66
[2024-06-27 22:08] LABS: Glucose - Point of Care 78 mg/dl (70-99)
[2024-06-27 23:00] VITALS: BP 113/66
[2024-06-28] MEDS: NSS 1000 IV (02:17)
[2024-06-28 03:00] VITALS: BP 123/63
[2024-06-28 05:12] VITALS: BMI 15.5
[2024-06-28 05:12] LABS: Glucose - Point of Care 75 mg/dl (70-99)
[2024-06-28 06:08] LABS: % Basophils 0.6 % (0-2); % Eosinophils 0.3 % (0-6); % Immature Granulocytes 0.3 % (0-0.5); % Lymphocytes 31.5 % (20.5-51.1); % Monocytes 7.3 % (1.7-9.3); Absolute Monocytes 0.5 10^3/uL (0.1-0.6); Absolute Neutrophils 3.8 10^3/uL (1.4-6.5); Hematocrit 36.7 % (37.0-47.0); Hemoglobin 12.1 g/dL (12.0-16.0); Mean Corpuscular Volume 94.1 fL (81.0-99.0); Mean Platelet Volume 9.6 fL (7.4-10.4); Nucleated Red Blood Cells % 0 %; Platelet Count 235 10^3/uL (130-400); Red Cell Dist. Width 13.8 % (11.5-14.5); White Blood Cell Count 6.3 10^3/uL (4.8-10.8)
[2024-06-28 06:38] LABS: ALT (SGPT) 50 U/L (0-35); AST (SGOT) 76 U/L (14-36); Albumin 3.6 g/dl (3.5-5.0); Alkaline Phosphatase 91 U/L (38-126); Blood Urea Nitrogen 28 mg/dl (7-17); Calcium 9.2 mg/dl (8.4-10.2); Carbon Dioxide 27 mmol/L (22-30); Chloride 110 mmol/L (98-107); Estimated Creatinine Clearance 58 ml/min; Glucose 78 mg/dl (70-99); Potassium 4.3 mmol/L (3.5-5.1); Sodium 144 mmol/L (135-145); Total Bilirubin 0.9 mg/dl (0.2-1.3); Total Protein 6.5 g/dl (6.3-8.2); eGFR > 60.00
[2024-06-28 07:12] LABS: Glucose - Point of Care 80 mg/dl (70-99)
[2024-06-28 07:27] VITALS: BP 132/85
--- NOTE | 2024-06-28 10:06 | PTOTSP ---
Dysphagia Evaluation
Patient with acute on chronic dysphagia (i.e., severe dementia, GERD, severe malnutrition; sepsis secondary to UTI). CXR 06/26/2024 clear. Patient is appropriate to resume her baseline diet with precautions below.
Recommend:
1. IDDSI Level 4 Puree, Thin Liquids
2. Medications: crushed in puree if medically cleared to do so
3. Strategies: upright to 90 degrees, PO only when awake/alert, full supervision and assistance, small single sips (pinch straw), slow rate, ensure patient swallows before next sip/bite
4. Oral care 3x daily
5. Brief dysphagia therapy follow up at the acute care level to ensure appropriate diet/swallowing compensations while hospitalized.
[2024-06-28 11:01] VITALS: BP 117/68
[2024-06-28 11:23] LABS: Glucose - Point of Care 71 mg/dl (70-99)
--- NOTE | 2024-06-28 11:29 | W.PN.HOSP.TC ---
Today's Communication/Plan
-
Awaiting urine culture sensitivities and speciation
Assessment / Plan
Assessment / Plan
Sepsis likely secondary to acute cystitis as this is the only for focal infectious source I can see
---Urine culture growing GNR's, awaiting speciation sensitive
-She is nonverbal
-UA grossly positive
-Continue Rocephin
Without evidence of hypoxia nor respiratory distress
-Will continue to monitor SpO2
Prediabetes, hyperglycemia in the setting of acute infection
-Continue to monitor blood sugars
-Would not initiate oral hypoglycemics at this time
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
-Delirium precautions
-Close the blinds at night, open them during the day
-Turn the TV on during the day turn it off at night
-Keep the lights on during the day turn them off at night
Hypothyroidism
-Continue levothyroxine
Severe protein calorie malnutrition with a BMI of 14.8
-Speech consult for swallow evaluation
-Encourage p.o. intake, ensure
GERD
-Continue PPI
Anxiety/depression
-Continue anxiolytics and antidepressant
Hyperlipidemia
-Continue statin
If afebrile for more than 24 hours we will plan to discharge back to [facility]
Anticipated Discharge: 24 - 48 hours
Subjective/Interval History
-
Date of Service: June 28, 2024
Seen and examined. Overall no change. Now today eyes wide open and tracking. However still not verbalizes as she is nonverbal
Objective Data
-
Labs:
Laboratory Results
06/28/24
05:44
WBC 6.3
Hgb 12.1
Hct 36.7 L
Plt Count 235
Sodium 144
Potassium 4.3
Chloride 110 H
Carbon Dioxide 27
BUN 28 H
Creatinine 0.5 L
Glucose 78
Calcium 9.2
Total Bilirubin 0.9
AST 76 H
ALT 50 H
Alkaline Phosphatase 91
Vital Signs:
Vital Signs
Temp Pulse Resp BP Pulse Ox
98.0 F 72 17 117/68 98
06/28/24 11:01 06/28/24 11:01 06/28/24 11:01 06/28/24 11:01 06/28/24 11:01
I&O
06/27/24 06/28/24 06/29/24
06:59 06:59 06:59
Intake Total 960 / 960 160 / 160
Balance 960 / 960 160 / 160
Physical Exam
-
General: Appears Chronically Ill and Cachectic
HEENT: Normocephalic and Atraumatic
Respiratory: Clear to Auscultation
Cardiac: Regular Rhythm
GI: Soft, Nontender, Nondistended and Normal Bowel Sounds
Skin: Warm
Neuro: Awake
Psych: Apparent Dementia and Other (Nonverbal)
[2024-06-28 14:14] VITALS: BMI 15.5
[2024-06-28 15:29] VITALS: BP 136/80
--- NOTE | 2024-06-28 16:03 | CM ---
Nonverbal confused patient who lives at [facility] home health care case manager . Spoke with Samantha pt is assisted in all activities of daily living.She uses walker to transfer and self propels in wheelchair.She is on a bed hold at [facility].
[facility]
PCP Dr Mackay
PLAN Return to [facility] via ambulance
[2024-06-28 16:29] LABS: Glucose - Point of Care 76 mg/dl (70-99)
--- NOTE | 2024-06-28 16:31 | PN.CDI ---
CDI
- -
CDI:
Physician Documentation Request
Admit Date: 06/26/24 19:26
Dear Doctor Avel,
Hospitalist progress notes include a diagnosis of severe protein calorie malnutrition
/ assessment and notes state 'Pt meeting AND and ASPEN criteria for moderate protein calorie malnutrition of chronic disease with > 5% weight loss in 1 month and observed muscle and fat wasting'
To ensure the quality of the medical record, based on the above information and the recognized standards for malnutrition , please clarify in your progress notes which of the following responses best reflects the patient's nutritional status:
Severe Malnutrition is/was present and is a clinical diagnosis (please provide additional support in the medical record)
Moderate protein calorie malnutrition
Other (please specify)
[place] Criteria ([facility] Hospitalist 2017)
2 or more criteria must be present for either
non severe or severe malnutrition
Note that the criteria differs related to the
presence of an acute or chronic illness
Acute Illness Chronic Illness
Energy Intake Non Severe: <75% for >7 days Non Severe: <75% for >1 month
Severe: <50% for >5 days Severe: <75% for >1 month
Weight Loss Non Severe: 1-2% over 1 week Non Severe: 5% over 1 month
5% over 1 month 7.5% over 3 months
7.5% over 3 months 10% over 6 months
1 year N/A 20% over 1 year
Severe: >2% over 1 week Severe: >5% over 1 month
>5% over 1 month >7.5% over 3 months
>7.5% over 3 months >10% over 6 months
1 year N/A >20% over 1 year
Body Fat Non Severe: Mild Decrease Non Severe: Mild Loss
Severe: Moderate Decrease Severe: Severe Loss
Muscle Mass Non Severe: Mild Decrease Non Severe: Mild Loss
Severe: Moderate Decrease Severe: Severe Loss
Fluid Accumulation Non Severe: Mild Accumulation Non Severe: Mild Accumulation
Severe: Moderate to severe Severe: Moderate to severe
accumulation accumulation
Reduced [place] Tanner Strength Non Severe: N/A Non Severe: N/A
Severe: Measurably reduced Severe: Measurably reduced
Use of terms such as suspected, likely, concern for, or probable (associated with a specific diagnosis that is being evaluated, monitored, or treated as if it exists) are acceptable and can be coded in the inpatient setting, when documented at the
time of discharge.
Thank you,
Vianey Lynch RN, BSN
CDI Specialist
tiger text
Please use your independent medical judgment in providing your response.
--- NOTE | 2024-06-28 16:40 | PN.CDI ---
CDI
- -
CDI:
Physician Documentation Request
Admit Date: 06/26/24 19:26
Dear Doctor Avel,
06/27 Pt evaluation states 'patient has severe dementia and she is nonverbal and unable to follow commands, in addition, she is bed bound at baseline'
OT note states '....chronic nonverbal bed bound status with contractures of bilateral arms and left hand and lower leg..... signing off as pt is dependent at baseline function'
Please choose which best describes the patient function:
Functional quadriplegia - complete immobility due to severe physical disability or frailty
Weakness
Other
Please provide further specificity as noted below:
Hemiparesis/Hemiplegia Paraparesis/Paraplegia Quadriparesis/Quadriplegia Monoparesis/Monoplegia
Type Type Type Site
Spastic Complete Complete Upper limb
Flaccid Incomplete Incomplete Lower limb
Unable to determine Unable to Determine Unable to determine Laterality
Laterality Etiology Level Left
Left CVA, cerebral palsy, C1-C4 Right
Right injury, etc. C5-C7 Side
Unable to determine Unable to determine Dominant side
Side Etiology Nondominant side
Dominant side CVA, cerebral palsy, Etiology
Nondominant side injury, etc. CVA, cerebral palsy,
Unable to determine Functional quadriplegia injury, etc.
Etiology complete immobility due
CVA, cerebral palsy, severe physical
injury, etc. disability or frailty
Use of terms such as suspected, likely, concern for, or probable (associated with a specific diagnosis that is being evaluated, monitored, or treated as if it exists) are acceptable and can be coded in the inpatient setting, when documented at the
time of discharge.
Thank you,
Vianey Lynch RN, BSN
CDI Specialist
tiger text
Please use your independent medical judgment in providing your response.
[2024-06-28] MEDS: LOVENOX 30 MG SC (17:36)
[2024-06-28] MEDS: STERILE WATER FOR INJECTION 10 ML IV (17:37)
[2024-06-28] MEDS: ROCEPHIN 1000 MG IV (17:38)
[2024-06-28 19:39] VITALS: BP 150/90
[2024-06-28 21:32] LABS: Glucose - Point of Care 79 mg/dl (70-99)
[2024-06-28] MEDS: ATIVAN 0.5 MG IV (22:21)
[2024-06-28] MEDS: NSS (PRESERVATIVE FREE) 0.25 ML IV (22:21)
[2024-06-28] MEDS: PEPCID 20 MG IV (22:23)
[2024-06-28] MEDS: NSS (PRESERVATIVE FREE) 8 ML IV (22:23)
[2024-06-28 22:48] VITALS: BP 128/82
[2024-06-29 03:44] VITALS: BP 106/68
[2024-06-29 06:00] VITALS: BMI 14.5
[2024-06-29 07:25] VITALS: BP 146/82
[2024-06-29 07:38] LABS: Glucose - Point of Care 77 mg/dl (70-99)
--- NOTE | 2024-06-29 08:21 | PTCARENOTE ---
Lab informed this RN of critical urine culture result, result = positive ESBL. made aware. Request in for private room.
[2024-06-29 08:25] LABS: % Basophils 0.5 % (0-2); % Eosinophils 0.3 % (0-6); % Immature Granulocytes 0.2 % (0-0.5); % Lymphocytes 28.7 % (20.5-51.1); % Monocytes 7.5 % (1.7-9.3); % Neutrophils 62.8 % (42.2-75.2); Absolute Lymphocytes 1.9 10^3/uL (1.2-3.4); Absolute Monocytes 0.5 10^3/uL (0.1-0.6); Absolute Neutrophils 4.2 10^3/uL (1.4-6.5); Hematocrit 36.9 % (37.0-47.0); Hemoglobin 12.7 g/dL (12.0-16.0); Mean Corp Hgb Conc. 34.4 g/dL (33.0-37.0); Mean Platelet Volume 9.9 fL (7.4-10.4); Nucleated Red Blood Cells % 0 %; Platelet Count 261 10^3/uL (130-400); Red Cell Dist. Width 13.5 % (11.5-14.5); White Blood Cell Count 6.7 10^3/uL (4.8-10.8)
[2024-06-29 09:44] LABS: ALT (SGPT) 46 U/L (0-35); AST (SGOT) 55 U/L (14-36); Albumin 3.9 g/dl (3.5-5.0); Alkaline Phosphatase 98 U/L (38-126); Blood Urea Nitrogen 35 mg/dl (7-17); Calcium 9.6 mg/dl (8.4-10.2); Carbon Dioxide 24 mmol/L (22-30); Chloride 110 mmol/L (98-107); Estimated Creatinine Clearance 54 ml/min; Glucose 87 mg/dl (70-99); Sodium 145 mmol/L (135-145); Total Bilirubin 0.7 mg/dl (0.2-1.3); Total Protein 6.9 g/dl (6.3-8.2); eGFR > 60.00
[2024-06-29] MEDS: INVANZ 60 MG IV (10:23)
[2024-06-29 11:23] VITALS: BP 136/90
--- NOTE | 2024-06-29 11:35 | CM ---
Chart reviewed: Discharge anticipated 24-48 hours
Plan: Return to [facility] when medically stable
[2024-06-29 12:28] LABS: Glucose - Point of Care 82 mg/dl (70-99)
[2024-06-29 15:25] VITALS: BP 138/80
--- NOTE | 2024-06-29 15:49 | W.PN.HOSP.TC ---
Addendum entered and electronically signed by Srikanth Vallecillo MD 06/29/24 18:30:
Suspect Functional quadriplegia is related to complete immobility due to severe physical disability or frailty
Moderate protein calorie malnutrition
Original Note:
Today's Communication/Plan
-
Assessment / Plan
Assessment / Plan
Sepsis likely secondary to acute cystitis as this is the only for focal infectious source I can see
---Proteus ESBL
-She is nonverbal
-UA grossly positive
-Stop Rocephin, Start Ertapenem
Without evidence of hypoxia nor respiratory distress
-Will continue to monitor SpO2
Prediabetes, hyperglycemia in the setting of acute infection
-Continue to monitor blood sugars
-Would not initiate oral hypoglycemics at this time
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
-Delirium precautions
-Close the blinds at night, open them during the day
-Turn the TV on during the day turn it off at night
-Keep the lights on during the day turn them off at night
Hypothyroidism
-Continue levothyroxine
Severe protein calorie malnutrition with a BMI of 14.8
-Speech consult for swallow evaluation
-Encourage p.o. intake, ensure
GERD
-Continue PPI
Anxiety/depression
-Continue anxiolytics and antidepressant
Hyperlipidemia
-Continue statin
If afebrile for more than 24 hours we will plan to discharge back to [facility]
Anticipated Discharge: 24 - 48 hours
Subjective/Interval History
-
Date of Service: June 29, 2024
Patient was seen and examined. Overall status remains unchanged. However found to have ESBL. Will need to be moved to a private room was started on isolation precautions. Rocephin changed to ertapenem
Objective Data
-
Labs:
Laboratory Results
06/29/24
07:41
WBC 6.7
Hgb 12.7
Hct 36.9 L
Plt Count 261
Sodium 145
Potassium 4.0
Chloride 110 H
Carbon Dioxide 24
BUN 35 H
Creatinine 0.5 L
Glucose 87
Calcium 9.6
Total Bilirubin 0.7
AST 55 H
ALT 46 H
Alkaline Phosphatase 98
Vital Signs:
Vital Signs
Temp Pulse Resp BP Pulse Ox
98.6 F 82 15 136/90 96
06/29/24 11:23 06/29/24 11:23 06/29/24 11:23 06/29/24 11:23 06/29/24 11:23
I&O
06/28/24 06/29/24 06/30/24
06:59 06:59 06:59
Intake Total 960 / 960 270 / 270
Balance 960 / 960 270 / 270
Physical Exam
-
General: Well Developed and Well Nourished
HEENT: Normocephalic and Atraumatic
Respiratory: Clear to Auscultation
Cardiac: Regular Rhythm
GI: Soft, Nontender, Nondistended and Normal Bowel Sounds
Skin: Warm
[2024-06-29 16:42] LABS: Glucose - Point of Care 97 mg/dl (70-99)
--- NOTE | 2024-06-29 16:45 | CON.ID ---
Consultation
-
Date/Time Consultation Requested: 06/29/2024 0907
Date/Time Consultation Performed: 06/29/2024 1430
Requesting Provider: Dr. Vallecillo
Performing Provider: Dr. Mckeon
Reason for Consultation: Complicated urinary tract infection
Chief Complaint / Past History
History of Present Illness
Tonia Wright is a 68-year-old female being evaluated at the request of Dr. Vallecillo in regards to a complicated urinary tract infection. History is obtained from chart review as the patient is nonverbal. The patient resides at a local nursing
facility ([facility]) where on 06/16 she was noted by the staff to be tachycardic, diaphoretic and reported chest pain with hypoxemia. EMS was called and she was transported to the ER, where she was found to have a temperature of 101.9 degrees,
and a leukocytosis of 12.2. Cultures obtained at the time of admission included blood cultures, which to date have shown no growth, but a urine culture has been found to have ESBL Proteus mirabilis. Infectious Diseases is asked to comment on
further antimicrobial therapy.
No further history is available from the patient secondary to her nonverbal status at this time.
Past History
Additional Past Medical History:
Dementia
HTN
Dyslipidemia
Hypothyroidism
Depression
Anxiety
Chronic constipation
Functional quadriplegia
Past Surgical History: Other (unknown)
Allergy History:
olanzapine [From Zyprexa] Allergy (Verified 05/28/24 12:07)
Unknown
sertraline [From Zoloft] Allergy (Verified 05/28/24 12:07)
Unknown
Medications Reviewed: Yes
Current Antibiotics:
Ertapenem 1 g IV every 24 hours
Social History
Tobacco: Non-Smoker
Alcohol: None
Drug: None
Living: [facility]
Family History
Family History: Unable to Obtain
Review of Systems
Review of Systems
ROS unavailable
Vital Signs
Temp Pulse Resp BP Pulse Ox
98.9 F 85 18 138/80 96
06/29/24 15:25 06/29/24 15:25 06/29/24 15:25 06/29/24 15:25 06/29/24 15:25
Physical Exam
Physical Exam
Constitutional: Chronically Ill, Non-toxic and Cachetic
Head: Normocephalic
Eyes: Pupils Equal, Pupils Round, No Conjunctival Hemorrhage and Sclera Anicteric
Cardiovascular: Regular Rate and S1/S2; Negative S3/S4
Pulmonary: Coarse and Non Labored
Gastrointestinal: Soft, Non Tender, Non Distended and Normal Bowel Sounds
Extremities: Negative Edema, Cyanosis or Erythema
Neurological: Other (Eyes open. No tracking. No following of commands.)
.
Lab / Diagnostic Study Results
06/29/24 07:41
06/29/24 07:41
Abs Immat Gran (auto) 0.0 10^3/uL (0-0.05) 06/29/24 07:41
Absolute Neuts (auto) 4.2 10^3/uL (1.4-6.5) 06/29/24 07:41
Absolute Lymphs (auto) 1.9 10^3/uL (1.2-3.4) 06/29/24 07:41
Absolute Monos (auto) 0.5 10^3/uL (0.1-0.6) 06/29/24 07:41
Absolute Basos (auto) 0.0 10^3/uL (0-0.2) 06/29/24 07:41
Immature Gran % 0.2 % (0-0.5) 06/29/24 07:41
Neutrophils % 62.8 % (42.2-75.2) 06/29/24 07:41
Lymphocytes % 28.7 % (20.5-51.1) 06/29/24 07:41
Monocytes % 7.5 % (1.7-9.3) 06/29/24 07:41
Eosinophils % 0.3 % (0-6) 06/29/24 07:41
Basophils % 0.5 % (0-2) 06/29/24 07:41
Ur Squamous Epith Cells 3-5 /LPF (Few) 06/26/24 17:16
Microbiology Results
Micro:
06/26/24 15:16 Blood Culture - Preliminary
Blood/Venous No Growth in 72 hours- Final report to follow
06/26/24 15:16 Blood Culture - Preliminary
Blood/Venous No Growth in 72 hours- Final report to follow
06/26/24 17:16 Urine Culture - Final
Urine Proteus Mirabilis-ESBL
06/27/24 03:13 MRSA Screen - Final
Nose No Methicillin Resistant Staphylococcus aureus isolated.
06/26/24 21:43 Influenza Types A & B (DRU) - Final
Nasal Swab Negative for Influenza A & B, NAAT
Negative results must be combined with clinical observations
and patient history.
Nucleic Acid Amplification test (NAAT)performed on the
[employer] NOW platform.
06/26/24 16:50 Influenza Types A & B (DRU) - Final
Nasal Swab Test repeatedly invalid.
Nucleic Acid Amplification test (NAAT)performed on the
[employer] NOW platform.
06/26/24 14:37 Influenza Types A & B (DRU) - Final
Nasal Swab Test repeatedly invalid.
Nucleic Acid Amplification test (NAAT)performed on the
[employer] platform.
Urine Culture Final 06/26/24
Organism 1 Proteus Mirabilis-ESBL
1. Proteus Mirabilis-ESBL
M.I.C. RX
--------- ---
Amoxicillin/Potas. Clavulanate <=8/4 S
Ampicillin >16 R
Ampicillin/Sulbactam <=4/2 S
Aztreonam >16 R
Cefazolin >16 R
Cefepime >16 R
Ceftazidime >16 R
Ceftriaxone >2 R
Ertapenem <=0.5 S
Ciprofloxacin >2 R
Gentamicin <=2 S
Meropenem <=1 S
Nitrofurantoin-Urine Only >64 R
Piperacillin/Tazobactam <=8 S
Tetracycline >8 R
Tobramycin 4 S
Trimethoprim/Sulfamethoxazole >2/38 R
Imaging:
06/16/2024 CXR (portable): No radiographic evidence for pneumonia, acute pulmonary edema or pleural effusion. Please see full dictation for additional detail. Film personally viewed.
Assessment / Plan
Leukocytosis; improved
Fever
Complicated urinary tract infection
Dementia
HTN
Dyslipidemia
Hypothyroidism
Depression
Anxiety
Chronic constipation
Functional quadriplegia
Recommendations:
Agree with initiation of ertapenem given recovery of ESBL organism.
Given complicated nature of infection, would complete a 10-day course of antibiotics.
In review of sensitivities, there does not appear to be an oral option.
Monitor white count and temperature curve.
Once patient otherwise stabilized, PICC/midline can be placed and she can [facility].
[2024-06-29] MEDS: LOVENOX 30 MG SC (18:17)
[2024-06-29 21:14] LABS: Glucose - Point of Care 88 mg/dl (70-99)
[2024-06-29] MEDS: ATIVAN 0.5 MG IV (22:18)
[2024-06-29] MEDS: NSS (PRESERVATIVE FREE) 0.25 ML IV (22:19)
[2024-06-29] MEDS: NSS (PRESERVATIVE FREE) 8 ML IV (22:19)
[2024-06-29] MEDS: PEPCID 20 MG IV (22:19)
[2024-06-29] MEDS: FLUSH (NSS) 1 FLUSH IV (22:21)
--- NOTE | 2024-06-29 22:34 | PTCARENOTE ---
Patient transferred from [facility] to [facility] for contact isolation, +ESBL.
[2024-06-29 23:00] VITALS: BP 111/69
--- NOTE | 2024-06-30 06:16 | PTCARENOTE ---
Daily weight not accurate for this morning measurement. Patient was moved in her bed from 337-1 to 331 -- bed needs to be zeroed again to obtain accurate weight. Patient is bedbound, contracted, nonverbal -- unable to get patient OOB at this time to
zero bed. Will discuss with dayshift team.
[2024-06-30 07:02] LABS: % Basophils 0.5 % (0-2); % Eosinophils 0.2 % (0-6); % Immature Granulocytes 0.2 % (0-0.5); % Lymphocytes 30.2 % (20.5-51.1); % Neutrophils 62.9 % (42.2-75.2); Absolute Lymphocytes 1.8 10^3/uL (1.2-3.4); Absolute Monocytes 0.4 10^3/uL (0.1-0.6); Absolute Neutrophils 3.7 10^3/uL (1.4-6.5); Hematocrit 38.8 % (37.0-47.0); Hemoglobin 13.1 g/dL (12.0-16.0); Mean Corp Hgb Conc. 33.8 g/dL (33.0-37.0); Mean Corpuscular Hgb 30.3 pg (27.0-31.0); Mean Corpuscular Volume 89.8 fL (81.0-99.0); Mean Platelet Volume 9.3 fL (7.4-10.4); Nucleated Red Blood Cells % 0 %; Platelet Count 263 10^3/uL (130-400); Red Blood Cell Count 4.32 10^6/uL (4.20-5.40); Red Cell Dist. Width 13.4 % (11.5-14.5); White Blood Cell Count 5.9 10^3/uL (4.8-10.8)
[2024-06-30 07:36] LABS: ALT (SGPT) 40 U/L (0-35); AST (SGOT) 41 U/L (14-36); Albumin 3.9 g/dl (3.5-5.0); Alkaline Phosphatase 89 U/L (38-126); Blood Urea Nitrogen 34 mg/dl (7-17); Calcium 9.1 mg/dl (8.4-10.2); Carbon Dioxide 27 mmol/L (22-30); Chloride 110 mmol/L (98-107); Estimated Creatinine Clearance 25 ml/min; Glucose 95 mg/dl (70-99); Potassium 3.9 mmol/L (3.5-5.1); Sodium 145 mmol/L (135-145); Total Bilirubin 0.9 mg/dl (0.2-1.3); Total Protein 6.8 g/dl (6.3-8.2); eGFR > 60.00
[2024-06-30 07:59] VITALS: BP 129/85
[2024-06-30 08:47] LABS: Glucose - Point of Care 90 mg/dl (70-99)
[2024-06-30] MEDS: INVANZ 60 MG IV (11:40)
[2024-06-30 12:06] LABS: Glucose - Point of Care 95 mg/dl (70-99)
--- NOTE | 2024-06-30 14:26 | W.PN.HOSP.TC ---
Today's Communication/Plan
-
Assessment / Plan
Assessment / Plan
General: NAD, appears chronically ill
HEENT: Normocephalic and Atraumatic
Respiratory: Clear to Auscultation
Cardiac: Regular Rhythm
GI: Soft, Nontender, Nondistended and Normal Bowel Sounds
Skin: Warm
Sepsis likely secondary to acute cystitis as this is the only for focal infectious source I can see
---Proteus ESBL
-She is nonverbal
-UA grossly positive
-Stop Rocephin, Start Ertapenem
Without evidence of hypoxia nor respiratory distress
-Will continue to monitor SpO2
Prediabetes, hyperglycemia in the setting of acute infection
-Continue to monitor blood sugars
-Would not initiate oral hypoglycemics at this time
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
-Delirium precautions
-Close the blinds at night, open them during the day
-Turn the TV on during the day turn it off at night
-Keep the lights on during the day turn them off at night
Hypothyroidism
-Continue levothyroxine
Severe protein calorie malnutrition with a BMI of 14.8
-Speech consult for swallow evaluation
-Encourage p.o. intake, ensure
GERD
-Continue PPI
Anxiety/depression
-Continue anxiolytics and antidepressant
Hyperlipidemia
-Continue statin
Will place PICC's line/midline for antibiotics IV. Case management begin working on disposition
Anticipated Discharge: Within 24 hours
Subjective/Interval History
-
Date of Service: June 30, 2024
Seen and examined no changes
Objective Data
-
Labs:
Laboratory Results
06/30/24
06:51
WBC 5.9
Hgb 13.1
Hct 38.8
Plt Count 263
Sodium 145
Potassium 3.9
Chloride 110 H
Carbon Dioxide 27
BUN 34 H
Creatinine 0.5 L
Glucose 95
Calcium 9.1
Total Bilirubin 0.9
AST 41 H
ALT 40 H
Alkaline Phosphatase 89
Vital Signs:
Vital Signs
Temp Pulse Resp BP Pulse Ox
99.6 F 91 16 129/85 94
06/30/24 07:59 06/30/24 07:59 06/30/24 07:59 06/30/24 07:59 06/29/24 23:00
I&O
06/29/24 06/30/24 07/01/24
06:59 06:59 06:59
Intake Total 270 / 270 360 / 360
Balance 270 / 270 360 / 360
[2024-06-30 15:46] VITALS: BP 138/79
[2024-06-30 17:05] LABS: Glucose - Point of Care 90 mg/dl (70-99)
[2024-06-30] MEDS: LOVENOX 30 MG SC (17:56)
[2024-06-30] MEDS: NSS (PRESERVATIVE FREE) 8 ML IV (21:04)
[2024-06-30] MEDS: PEPCID 20 MG IV (21:04)
[2024-06-30] MEDS: NSS (PRESERVATIVE FREE) 0.25 ML IV (21:05)
[2024-06-30] MEDS: ATIVAN 0.5 MG IV (21:05)
[2024-06-30] MEDS: FLUSH (NSS) 1 FLUSH IV (21:07)
[2024-06-30 22:06] LABS: Glucose - Point of Care 105 mg/dl (70-99)
[2024-06-30 23:45] VITALS: BP 158/86
[2024-07-01 06:07] LABS: % Basophils 0.3 % (0-2); % Immature Granulocytes 0.3 % (0-0.5); % Lymphocytes 18.8 % (20.5-51.1); % Monocytes 3.7 % (1.7-9.3); % Neutrophils 76.9 % (42.2-75.2); Absolute Lymphocytes 1.6 10^3/uL (1.2-3.4); Absolute Monocytes 0.3 10^3/uL (0.1-0.6); Absolute Neutrophils 6.6 10^3/uL (1.4-6.5); Hematocrit 42.3 % (37.0-47.0); Hemoglobin 14.2 g/dL (12.0-16.0); Mean Corp Hgb Conc. 33.6 g/dL (33.0-37.0); Mean Corpuscular Hgb 30.7 pg (27.0-31.0); Mean Corpuscular Volume 91.4 fL (81.0-99.0); Mean Platelet Volume 9.7 fL (7.4-10.4); Nucleated Red Blood Cells % 0 %; Platelet Count 296 10^3/uL (130-400); Red Blood Cell Count 4.63 10^6/uL (4.20-5.40); Red Cell Dist. Width 13.4 % (11.5-14.5); White Blood Cell Count 8.6 10^3/uL (4.8-10.8)
[2024-07-01 07:00] VITALS: BP 151/95
[2024-07-01 07:06] LABS: ALT (SGPT) 39 U/L (0-35); AST (SGOT) 39 U/L (14-36); Albumin 4.2 g/dl (3.5-5.0); Alkaline Phosphatase 94 U/L (38-126); Blood Urea Nitrogen 38 mg/dl (7-17); Calcium 9.3 mg/dl (8.4-10.2); Carbon Dioxide 27 mmol/L (22-30); Chloride 110 mmol/L (98-107); Estimated Creatinine Clearance 25 ml/min; Glucose 103 mg/dl (70-99); Sodium 147 mmol/L (135-145); Total Protein 7.3 g/dl (6.3-8.2); eGFR > 60.00
[2024-07-01 08:33] LABS: Glucose - Point of Care 119 mg/dl (70-99)
[2024-07-01] MEDS: INVANZ 60 MG IV (10:32)
[2024-07-01 13:52] LABS: Glucose - Point of Care 100 mg/dl (70-99)
[2024-07-01 15:00] VITALS: BP 131/85
--- NOTE | 2024-07-01 17:05 | W.PN.HOSP.TC ---
Today's Communication/Plan
-
IV ertapenem
Midline placed
Planning discharge back to SNF on IV ertapenem
Assessment / Plan
Assessment / Plan
General: NAD, appears chronically ill, opens eyes, nonverbal
HEENT: Normocephalic and Atraumatic
Respiratory: Clear to Auscultation
Cardiac: Regular Rhythm
GI: Soft, Nontender, Nondistended and Normal Bowel Sounds
Skin: Warm
Sepsis likely secondary to acute cystitis as this is the only for focal infectious source I can see
---Proteus ESBL
-She is nonverbal
-UA grossly positive
-Stop Rocephin, Start Ertapenem
-Midline placed. ID following for duration
Without evidence of hypoxia nor respiratory distress
-Will continue to monitor SpO2
Prediabetes, hyperglycemia in the setting of acute infection
-Continue to monitor blood sugars
-Would not initiate oral hypoglycemics at this time
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
-Delirium precautions
-Close the blinds at night, open them during the day
-Turn the TV on during the day turn it off at night
-Keep the lights on during the day turn them off at night
Hypothyroidism
-Continue levothyroxine
Severe protein calorie malnutrition with a BMI of 14.8
-Speech consult for swallow evaluation
-Encourage p.o. intake, ensure
GERD
-Continue PPI
Anxiety/depression
-Continue anxiolytics and antidepressant
Hyperlipidemia
-Continue statin
Will place PICC's line/midline for antibiotics IV. Case management begin working on disposition
Anticipated Discharge: Within 24 hours
Subjective/Interval History
-
Date of Service: July 01, 2024
Seen and examined. Remains unchanged from
Objective Data
-
Labs:
Laboratory Results
07/01/24
05:59
WBC 8.6
Hgb 14.2
Hct 42.3
Plt Count 296
Sodium 147 H
Potassium 4.0
Chloride 110 H
Carbon Dioxide 27
BUN 38 H
Creatinine 0.6
Glucose 103 H
Calcium 9.3
Total Bilirubin 1.0
AST 39 H
ALT 39 H
Alkaline Phosphatase 94
Vital Signs:
Vital Signs
Temp Pulse Resp BP Pulse Ox
97.5 F 80 16 131/85 96
07/01/24 15:00 07/01/24 15:00 07/01/24 15:00 07/01/24 15:00 07/01/24 15:00
I&O
06/30/24 07/01/24 07/02/24
06:59 06:59 06:59
Intake Total 360 / 360 240 / 240
Balance 360 / 360 240 / 240
[2024-07-01 17:13] LABS: Glucose - Point of Care 105 mg/dl (70-99)
[2024-07-01] MEDS: LOVENOX 30 MG SC (17:34)
[2024-07-01 21:30] LABS: Glucose - Point of Care 92 mg/dl (70-99)
[2024-07-01] MEDS: ATIVAN 0.5 MG IV (21:42)
[2024-07-01] MEDS: NSS (PRESERVATIVE FREE) 0.25 ML IV (21:43)
[2024-07-01 22:52] VITALS: BP 124/69
[2024-07-02 06:00] VITALS: BMI 13.7
[2024-07-02 07:45] VITALS: BP 129/77
[2024-07-02 08:18] LABS: Glucose - Point of Care 106 mg/dl (70-99)
[2024-07-02] MEDS: INVANZ 60 MG IV (09:53)
--- NOTE | 2024-07-02 11:58 | CM ---
Addendum entered by Lyn Mcmahon 07/02/24 14:40:
Mid line information sent to SNF via fax and VM left for patient son beena to discuss IMM form. CM will continue to follow for discharge planning needs.
Please call report to [phone]/fax [phone].
Addendum entered by Lyn Mcmahon 07/02/24 14:25:
Patient for discharge back to SNF today. CM to fax PICC/Mid line information to [phone]. CM will complete information on discharge transfers and call family to update. CM will continue to follow for discharge planning needs.
Original Note:
Patient seen at bedside. CM received text from patient physician that patient is for possible discharge to [facility]. CM called to liaison await call back. CM will continue to follow for discharge planning needs.
Plan; for return to SNF
Please call report to [phone]/fax [phone].
--- NOTE | 2024-07-02 12:10 | W.PN.HOSP.TC ---
Today's Communication/Plan
-
Discharge
Assessment / Plan
Assessment / Plan
General: NAD, appears chronically ill, opens eyes, nonverbal
HEENT: Normocephalic and Atraumatic
Respiratory: Clear to Auscultation
Cardiac: Regular Rhythm
GI: Soft, Nontender, Nondistended and Normal Bowel Sounds
Skin: Warm
Sepsis due to UTI
---Proteus ESBL
Continue IV ertapenem per ID recommendation, 10 days total. PICC line placed.
Hypernatremia -due to mild dehydration. Encourage p.o. intake. Etiology is due to her advanced dementia. Prognosis remains poor.
Without evidence of hypoxia nor respiratory distress
-Will continue to monitor SpO2
Prediabetes, hyperglycemia in the setting of acute infection
-Continue to monitor blood sugars
-Would not initiate oral hypoglycemics at this time
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
-Delirium precautions
-Close the blinds at night, open them during the day
-Turn the TV on during the day turn it off at night
-Keep the lights on during the day turn them off at night
Overall poor prognosis and she is hospice appropriate.
Hypothyroidism
-Continue levothyroxine
Severe protein calorie malnutrition with a BMI of 14.8
-Speech consult for swallow evaluation
-Encourage p.o. intake, ensure
GERD
-Continue PPI
Anxiety/depression
-Continue anxiolytics and antidepressant
Hyperlipidemia
-Continue statin
Dispo -medically stable for discharge. Left a voicemail for patient's son to call me back with any questions.
Discussed with case management.
32-minute spent in discharge process.
Anticipated Discharge: Today
Subjective/Interval History
-
Date of Service: July 02, 2024
Patient seen/examined. Nonverbal, looks comfortable.
Objective Data
-
Labs:
Laboratory Results
07/02/24
11:57
Sodium Pending
Potassium Pending
Chloride Pending
Carbon Dioxide Pending
BUN Pending
Creatinine Pending
Glucose Pending
Calcium Pending
Vital Signs:
Vital Signs
Temp Pulse Resp BP Pulse Ox
97.5 F 73 18 129/77 96
07/02/24 07:45 07/02/24 07:45 07/02/24 07:45 07/02/24 07:45 07/02/24 07:45
I&O
07/01/24 07/02/24 07/03/24
06:59 06:59 06:59
Intake Total 240 / 240 950 / 950
Balance 240 / 240 950 / 950
Review of Systems
-
Unable to obtain full review of systems at this time due to: Patient Non-verbal
[2024-07-02 12:34] LABS: Glucose - Point of Care 142 mg/dl (70-99)
[2024-07-02 13:26] LABS: Blood Urea Nitrogen 46 mg/dl (7-17); Calcium 9.8 mg/dl (8.4-10.2); Carbon Dioxide 28 mmol/L (22-30); Chloride 110 mmol/L (98-107); Estimated Creatinine Clearance 51 ml/min; Glucose 135 mg/dl (70-99); Potassium 3.9 mmol/L (3.5-5.1); Sodium 147 mmol/L (135-145); eGFR > 60.00
--- NOTE | 2024-07-02 13:58 | W.DS.TRANS ---
DC Summary - [employer]
-
Discharge Instructions:
Discharge Diagnosis/Procedures Sepsis, UTI
Diet Other diet
Additional Diets Pureed
Activity As tolerated
Driving Restrictions No driving
Bathing Restrictions None
Blood Work BMP in 1 week
Instructions:
Stand-Alone Forms:
Changes to Home Medications: No
Discharge Medications:
DC Medications w/original date entered in [employer]
acetaminophen 325 mg tablet 650 mg PO Q4HPRN PRN mild pain/fever>100 02/10/23
atorvastatin 40 mg tablet 40 mg PO DAILY High Cholesterol 02/10/23
bupropion HCl 150 mg tablet,12 hr sustained-release 150 mg PO DAILY Depression 02/10/23
clonazepam 0.5 mg tablet 0.5 mg PO HS Mental Health/Anxiety 02/10/23
docusate sodium 100 mg capsule (Colace) 100 mg PO BID Constipation 02/10/23
levothyroxine 112 mcg tablet 112 mcg PO DAILY Thyroid 02/10/23
paroxetine HCl 10 mg tablet 30 mg PO HS Depression 02/10/23
polyethylene glycol 3350 17 gram oral powder packet (Miralax) 17 g PO DAILY Constipation 02/10/23
sennosides 8.6 mg tablet (senna) 17.2 mg PO BID Constipation 02/10/23
famotidine 20 mg tablet (Pepcid) 20 mg PO DAILY Gastrointestinal Issue 05/28/24
mirtazapine 7.5 mg tablet 7.5 mg PO DAILY Mental Health/Anxiety 05/28/24
eyelid cleanser combination 3 (OcuSoft Lid Scrub Plus topical pads) 1 pad topical BID both eyelids 06/26/24
honey 80 % topical gel (MediHoney (honey)) 1 applic topical DAILY sacral wound 06/26/24
honey 80 % topical gel (MediHoney (honey)) 1 applic topical DAILYPRN PRN soilage 06/26/24
losartan 25 mg tablet 25 mg PO DAILY Blood Pressure 06/26/24
Ertapenem [Invanz] 1,000 mg 120 mls/hr IV Q24H 07/02/24
Home Medication Changes
Pending Results: No
--- NOTE | 2024-07-02 14:39 | W.PN.ID1 ---
Date of Service
Date of Service: July 02, 2024
Today's Communication
Continue abx.
Assessment / Plan
Leukocytosis; improved
Fever
Complicated urinary tract infection
Dementia
HTN
Dyslipidemia
Hypothyroidism
Depression
Anxiety
Chronic constipation
Functional quadriplegia
Recommendations:
Continue ertapenam (d#4)
Given complicated nature of infection, would complete a 10-day course of antibiotics.
In review of sensitivities, there does not appear to be an oral option.
Monitor white count and temperature curve.
Abx sheet given to CM.
����������������������������������������������������������
Chief Complaint
-: UTI
Subjective / Review of Systems
Review of Systems: No Fever
Vital Signs / Physical Exam
Vital Signs
Vital Signs
Temp Pulse Resp BP Pulse Ox
97.5 F 73 18 129/77 96
07/02/24 07:45 07/02/24 07:45 07/02/24 07:45 07/02/24 07:45 07/02/24 07:45
Physical Exam
Constitutional: Cachetic (Profound)
Eyes: Sclera Anicteric
Cardiovascular: S1/S2; Negative S3/S4
Pulmonary: Non Labored
Gastrointestinal: Soft and Non Distended
Objective Data
Lab Data
Lab Results
07/01/24 05:59
07/02/24 11:57
Estimated Creat Clear 51 ml/min 07/02/24 11:57
Total Bilirubin 1.0 mg/dl (0.2-1.3) 07/01/24 05:59
AST 39 U/L (14-36) H 07/01/24 05:59
ALT 39 U/L (0-35) H 07/01/24 05:59
Alkaline Phosphatase 94 U/L (38-126) 07/01/24 05:59
Most recent labs reviewed.
Micro Results:
06/26/24 15:16 Blood Culture - Final
Blood/Venous No Growth - Final Report
06/26/24 15:16 Blood Culture - Final
Blood/Venous No Growth - Final Report
06/26/24 17:16 Urine Culture - Final
Urine Proteus Mirabilis-ESBL
06/27/24 03:13 MRSA Screen - Final
Nose No Methicillin Resistant Staphylococcus aureus isolated.
06/26/24 21:43 Influenza Types A & B (DRU) - Final
Nasal Swab Negative for Influenza A & B, NAAT
Negative results must be combined with clinical observations
and patient history.
Nucleic Acid Amplification test (NAAT)performed on the
[employer] NOW platform.
06/26/24 16:50 Influenza Types A & B (DRU) - Final
Nasal Swab Test repeatedly invalid.
Nucleic Acid Amplification test (NAAT)performed on the
[employer] NOW platform.
06/26/24 14:37 Influenza Types A & B (DRU) - Final
Nasal Swab Test repeatedly invalid.
Nucleic Acid Amplification test (NAAT)performed on the
[employer] NOW platform.
Urine Culture Final 06/26/24
Organism 1 Proteus Mirabilis-ESBL
1. Proteus Mirabilis-ESBL
M.I.C. RX
--------- ---
Amoxicillin/Potas. Clavulanate <=8/4 S
Ampicillin >16 R
Ampicillin/Sulbactam <=4/2 S
Aztreonam >16 R
Cefazolin >16 R
Cefepime >16 R
Ceftazidime >16 R
Ceftriaxone >2 R
Ertapenem <=0.5 S
Ciprofloxacin >2 R
Gentamicin <=2 S
Meropenem <=1 S
Nitrofurantoin-Urine Only >64 R
Piperacillin/Tazobactam <=8 S
Tetracycline >8 R
Tobramycin 4 S
Trimethoprim/Sulfamethoxazole >2/38 R
Imaging:
06/16/2024 CXR (portable): No radiographic evidence for pneumonia, acute pulmonary edema or pleural effusion. Please see full dictation for additional detail. Film personally viewed.
[2024-07-02 15:55] VITALS: BP 123/75
== END 2024-07-02 16:55 | DRG 871 ==
LOC: 3 WEST ACU 19:26
PROVIDERS: Clinical Nurse Specialist Family Health; ADMITTING PHYSICIAN Hospitalist; ATTENDING PHYSICIAN Hospitalist; EMERGENCY PHYSICIAN Emergency Medicine; FAMILY PHYSICIAN Internal Medicine; OTHER PHYSICIAN Internal Medicine Infectious Disease
DX: A41.9 Sepsis, unspecified organism (principal); J18.9 Pneumonia, unspecified organism; R53.2 Functional quadriplegia; N39.0 Urinary tract infection, site not specified; E87.0 Hyperosmolality and hypernatremia; F03.C4 Unspecified dementia, severe, with anxiety; F03.C3 Unspecified dementia, severe, with mood disturbance; E44.0 Moderate protein-calorie malnutrition; Z68.1 Body mass index [BMI] 19.9 or less, adult; Z11.52 Encounter for screening for COVID-19; Z74.01 Bed confinement status; R09.02 Hypoxemia; R06.89 Other abnormalities of breathing; I10 Essential (primary) hypertension; E78.00 Pure hypercholesterolemia, unspecified; E03.9 Hypothyroidism, unspecified; F32.A Depression, unspecified; K59.09 Other constipation
CPT/HCPCS: 71045; 80048; 80053; 81003; 81015; 82962; 83036; 85025; 87040; 87070; 87077; 87086; 87186; 87502; 87811; 92526; 92610; 93005; 94760; 96374; 96375; 99285; J1335

== ENCOUNTER 2024-08-02 15:01 | Emergency (ER) | payer MEDICARE, OTHER, SELFPAY ==
[2024-08-02 15:08] VITALS: BP 94/62
[2024-08-02 15:09] VITALS: BP 94/62
--- NOTE | 2024-08-02 15:27 | ED.GENMED ---
History of Present Illness
General
Chief Complaint: Fever
Source: ambulance crew and half-way
Exam Limitations: none
Time Seen by Provider: 08/02/24 15:09
History of Present Illness
History of Present Illness:
Patient to ED for report of fever, low pulse ox readings. Symptoms started 2 days ago. Brought to ED from [facility] for eval. Non verbal
Past History
Past History
ED Past Medical History: HTN, Hypercholesterolemia, Hypothyroidism and Other (Dementia)
Social History
Tobacco: Non-smoker
Living: half-way
Employment: Retired
Review of Systems
Review of Systems
Allergies reviewed?: Yes
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
All Other Systems: ROS reviewed and negative except as documented in HPI and ROS
Constitutional: Reports fever
EENT: Reports no symptoms
Respiratory: Reports trouble breathing
Cardiac: Reports no symptoms
ABD/GI: Reports no symptoms
: Reports no symptoms
Musculoskeletal: Reports no symptoms
Skin: Reports no symptoms
Psychiatric: Reports other (Nonverbal, chronically ill, contracted)
Phy Exam
General Physical Exam
General Presentation: well appearing and no apparent distress
General age: appears stated age
General Skin: warm and dry
General Habitus: normal
Cardiovascular Exam
Cardiovascular Exam: regular rate/rhythm and no edema
Pulmonary Exam
Pulmonary Exam: lungs clear, no respiratory distress and chest non tender
Gastrointestinal Exam
Gastrointestinal Exam: non tender and soft
Musculoskeletal Exam
Musculoskeletal Exam: neuro vasc intact and other (contractures upper and lower extremities)
Skin Exam
Skin Exam: normal color, warm/dry, no rash and other (No wounds noted)
Psychiatric Exam
Psychiatric Exam: normal mood/affect
Sepsis
Sepsis Screening
Sepsis Assessment: Sepsis Ruled Out
Sepsis Screen
Sepsis Screen: Sepsis Ruled Out
Date: 08/02/24
Time: 20:52
Course
Orders/Labs/Results
Orders:
Orders
08/02/24 15:21
0.9% Sodium Chloride 1000 ml [Nss] 1,000 ml IV BOLUS
08/02/24 15:22
CR Chest - 2 Views Urgent
Comment:
Reason For Exam: SOB, fever
08/02/24 15:25
Acetaminophen 1000MG/100Ml [Ofirmev] 1,000 mg in 100 ml IV ONCE
Acetaminophen IV Indication:: No [place] & No Enteral Access
08/02/24 15:32
COVID-19 Antigen Urgent
Source: Nasal Swab
Complete Blood Count/With Diff Urgent
Comprehensive Metabolic Panel Urgent
Lactic Acid Urgent
Blood Culture Urgent
RUTHANN Source: Blood/Venous
Specimen Description:
Influenza A+B Rapid Molecular Urgent
RUTHANN Source: Nasal Swab
Specimen Description:
08/02/24 17:33
Urinalysis Reflex To Culture Urgent
Date Specimen was Collected: 08/02/24
Time Specimen was Collected: 17:32
Urine Microscopic Reflex Cult Urgent
Urine Culture Urgent
RUTHANN Source: U
Specimen Description:
Date Specimen was Collected: 08/02/24
Time Specimen was Collected: 17:32
08/02/24 19:39
Amoxicillin/Clavulanate Potass [Augmentin Es 600 mg/5 ml] 600 mg PO NOW STA
Abnormal Lab Results
08/02/24 08/02/24
15:32 17:33
MCHC 31.6 L g/dL
(33.0-37.0)
Absolute Neuts (auto) 7.0 H 10^3/uL
(1.4-6.5)
Absolute Monos (auto) 0.8 H 10^3/uL
(0.1-0.6)
Sodium 152 H mmol/L
(135-145)
Chloride 114 H mmol/L
(98-107)
Carbon Dioxide 33 H mmol/L
(22-30)
BUN 49 H mg/dl
(7-17)
Glucose 104 H mg/dl
(70-99)
AST 212 H U/L
(14-36)
ALT 195 H U/L
(0-35)
Ur Occult Blood Reflex 2+ A
(Negative)
Leukocyte Esterase Rfl 3+ A
(Negative)
Urine RBC 7-10 A /HPF
(0-2)
Urine WBC (Reflex) 26-30 A /HPF
(0-5)
Urine Bacteria (Reflex) Few A
(Negative)
Urine Albumin (Reflex) 2+ A
(Neg - Trace)
08/02/24 15:32
08/02/24 15:32
Vital Signs
Initial and Last Documented VS:
Initial Vital Signs
Temp Pulse Resp BP Pulse Ox
103.3 F H 108 20 94/62 95
08/02/24 15:08 08/02/24 15:08 08/02/24 15:08 08/02/24 15:08 08/02/24 15:08
Last Documented Vital Signs
Temp Pulse Resp BP Pulse Ox
97.9 F 80 18 119/77 95
08/02/24 20:45 08/02/24 20:30 08/02/24 20:30 08/02/24 20:00 08/02/24 20:30
*Radiology
Radiology exam reviewed: radiology read reviewed
*Pulse Oximetry
Patient hypoxic: no
*Critical Care Note
Total Time (30-74mins, 75-104mins- exclusive of procedures): Not Applicable
Update Note
Update Note:
Received from [facility] with temp of 103 rectal. Given 1g Ofirmev and temp reduced to 99.2 Labs reviewed. WBC normal, lactic 1.6. Covid, influenza, neg. CXR neg for pneumonial. UA reflecting UTI. Given dose of augmentin in dept. Blood cutures
pending. SHe is a DNR, on hospice however son would like UTI treated. GIven dose of augmentin in dept and she will be dishcarged back to facility with Rx. Case discussed with Dr. Wood who agrees with findings and plan.
ED Attending Note
-
Portions of this chart may have been created with voice recognition software.� Occasional wrong word or��sound alike� substitutions may have occurred due to the inherent limitations of voice recognition software.
Discharge Plan
Departure
Patient Disposition: Fdc/SNF
Date of Disposition: 08/02/24
Time of Disposition: 19:31
Discharge Problem:
UTI (urinary tract infection)
Instructions: Urinary tract infections in adults, Fever, Adult (DC)
Prescriptions:
New
amoxicillin-pot clavulanate [Augmentin] 500-125 mg tablet
1 tab PO BID Qty: 14 0RF
No Action
atorvastatin 40 mg Tablet
40 mg PO DAILY
bupropion HCl 150 mg Tablet Sustained-Release 12 Hr
150 mg PO DAILY
sennosides [senna] 8.6 mg Tablet
17.2 mg PO BID
acetaminophen 325 mg Tablet
650 mg PO Q4HPRN PRN (Reason: mild pain/fever>100)
paroxetine HCl 10 mg Tablet
30 mg PO HS
polyethylene glycol 3350 [Miralax] 17 gram Powder In Packet
17 g PO DAILY
Rx Instructions:
Hold for loose stools
clonazepam 0.5 mg Tablet
0.5 mg PO HS
docusate sodium [Colace] 100 mg Capsule
100 mg PO BID
Rx Instructions:
Hold for loose stools
levothyroxine 112 mcg Tablet
112 mcg PO DAILY
famotidine [Pepcid] 20 mg Tablet
20 mg PO DAILY
mirtazapine 7.5 mg Tablet
7.5 mg PO DAILY
losartan 25 mg Tablet
25 mg PO DAILY
Rx Instructions:
Hold for SBP<110
OcuSoft Lid Scrub Plus Pads, Medicated
1 pad TOPICAL BID
MediHoney (honey) 80 % Gel
1 applic TOPICAL DAILY
MediHoney (honey) 80 % Gel
1 applic TOPICAL DAILYPRN PRN (Reason: soilage)
Referrals:
Stefano Mackay MD [Family Provider] - Tomorrow
Interventions
Interventions:
*Risk Screen - Suicide Last Done: 08/02/24 15:08
*General Assessment Last Done: 08/02/24 15:08
*Neglect/Abuse Screening Last Done: 08/02/24 15:08
ED- Neurological Assessment Last Done: 08/02/24 16:00
ED-Skin Assessment Last Done: 08/02/24 16:00
Discharge Date and Time
Print Language: Luxembourger
[2024-08-02] MEDS: OFIRMEV 100 IV (15:30)
[2024-08-02] MEDS: NSS 1000 IV (15:31)
[2024-08-02 15:45] LABS: % Basophils 0.3 % (0-2); % Immature Granulocytes 0.4 % (0-0.5); % Lymphocytes 22.1 % (20.5-51.1); % Neutrophils 69.2 % (42.2-75.2); Absolute Lymphocytes 2.2 10^3/uL (1.2-3.4); Absolute Monocytes 0.8 10^3/uL (0.1-0.6); Hematocrit 46.8 % (37.0-47.0); Hemoglobin 14.8 g/dL (12.0-16.0); Mean Corp Hgb Conc. 31.6 g/dL (33.0-37.0); Mean Corpuscular Hgb 30.6 pg (27.0-31.0); Mean Corpuscular Volume 96.9 fL (81.0-99.0); Mean Platelet Volume 10.4 fL (7.4-10.4); Nucleated Red Blood Cells % 0 %; Platelet Count 253 10^3/uL (130-400); Red Blood Cell Count 4.83 10^6/uL (4.20-5.40); Red Cell Dist. Width 13.8 % (11.5-14.5); White Blood Cell Count 10.1 10^3/uL (4.8-10.8)
[2024-08-02 15:57] LABS: Lactic Acid 1.6 mmol/L (0.7-2.0)
[2024-08-02 15:59] LABS: ALT (SGPT) 195 U/L (0-35); AST (SGOT) 212 U/L (14-36); Alkaline Phosphatase 91 U/L (38-126); Blood Urea Nitrogen 49 mg/dl (7-17); Calcium 9.4 mg/dl (8.4-10.2); Carbon Dioxide 33 mmol/L (22-30); Chloride 114 mmol/L (98-107); Glucose 104 mg/dl (70-99); Potassium 4.3 mmol/L (3.5-5.1); Sodium 152 mmol/L (135-145); Total Bilirubin 1.1 mg/dl (0.2-1.3); Total Protein 7.7 g/dl (6.3-8.2); eGFR > 60.00
[2024-08-02 16:00] VITALS: BP 106/70
[2024-08-02 16:25] LABS: COVID-19 Antigen Negative (Negative)
[2024-08-02 17:00] VITALS: BP 97/64
[2024-08-02 17:53] LABS: Urine Albumin 2+ (Neg - Trace); Urine Bilirubin Negative (Negative); Urine Character Slightly Cloudy (Clear); Urine Color Brown; Urine Glucose Negative (Negative); Urine Ketone Negative (Negative); Urine Leukocyte 3+ (Negative); Urine Nitrite Negative (Negative); Urine Occult Blood 2+ (Negative); Urine Specific Gravity 1.025 (<1.030); Urine Urobilinogen 1+ (Neg - 1+)
[2024-08-02 18:00] VITALS: BP 91/51
[2024-08-02 18:13] LABS: Urine Bacteria Few (Negative); Urine White Cell 26-30 /HPF (0-5)
[2024-08-02 19:33] VITALS: BMI 14.8
[2024-08-02] MEDS: AUGMENTIN ES 600 MG/5 ML PO (19:51)
[2024-08-02 20:00] VITALS: BP 119/77
== END 2024-08-02 20:54 ==
LOC: EMR 15:01
PROVIDERS: Nurse Practitioner; EMERGENCY PHYSICIAN Emergency Medicine; FAMILY PHYSICIAN Internal Medicine
DX: N39.0 Urinary tract infection, site not specified (principal); I10 Essential (primary) hypertension; E78.00 Pure hypercholesterolemia, unspecified; E03.9 Hypothyroidism, unspecified; F03.90 Unspecified dementia, unspecified severity, without behavioral disturbance, psychotic disturbance, mood disturbance, and anxiety
CPT/HCPCS: 96374; 96361; 99284; 71046; 80053; 81003; 81015; 83605; 85025; 87040; 87086; 87502; 87811